=== PATIENT | male | born 1970 | race Caucasian/White ===

== ENCOUNTER 2024-03-24 08:33 | Outpatient (CLI) | payer BC, SELFPAY ==
--- OUTSIDE RECORDS SUMMARY | 2024-03-24 08:40 | XMS_ITS | Encounter Summary ---
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 Name Role Phone No Primary/Referring, Phy Primary Care Provider Unavailable Reason for Visit * Procedure/Equipment (Routine) - Incomplete Specialty Diagnoses / Procedures Referred By Smiley cueto Referred To Contact Diagnoses Tremor Procedures NM DaTscan Brain Spect Grayson Tolentino MD [address] [place] [address] Referral ID Status Reason Start Date Expiration Date V isits Requested Visits Authorized [id number] Incomplete 12/10/2023 03/10/2025 6 6 Encounter Details Date Type Department Care Team (Late st Contact Info) Description 12/31/2023 2:30 PM FLATWARE MAKER Ancillary Procedure [facility] [address] [place] [address] [phone] Grayson Tolentino MD [address] [place] [address] [phone] Social History Tobacco Use Types Packs/Day Years Used Date Smoking Tobacco: Never Smokeless Tobacco: Never Alcohol Use Standard Drinks/Week Comments Not Currently 0 (1 standard drink = 0.6 oz pur e alcohol) Sex and Gender Information Value Date Recorded Sex Assigned at Not on file Gender Identity Not on file Sexual Orientation Not on file documented as of this encounter Plan of Treatment Upcoming Encounters Date Type Department Care Team (Late Contact Info) Description 09/08/2024 8:50 AM CDT Appointment [facility] [place] [phone] Grayson Tolentino MD [address] [place] [address] documented as of this encounter Procedures Procedure Name Priority Date/Time Associated Diagnosis Comments NM DATSCAN BRAIN SPECT Routine 12/31/2023 3:00 PM FLATWARE MAKER Tremor documented in this encounter Results * NM DaTscan Brain Spect (12/31/2023 3:00 PM FLATWARE MAKER) Anatomical Region Laterality Modality [facility] 12/31/2023 3:00 PM FLATWARE MAKER Narrative 12/31/2023 3:19 PM FLATWARE MAKER EXAM: NM DATSCAN BRAIN SPECT LOCATION: [facility] DATE: 12/31/2023 INDICATION: Tremor, Tremor, unspecified. Complex tremor. Life-long tremor with more recent worsening. COMPARISON: MR brain 07/14/2023 reviewed. TECHNIQUE: IOFLUPANE I 123 185 MBQ/2.5ML IV SOLN 4.3 millicurie, IV. 3 hour delay SPECT brain imaging. FINDINGS: Slight asymmetry of the right caudate nucleus and putamen as compared to the left, likely due to some slight oblique patient positioning, as overall radiotracer distribution and morphology of the caudate nuclei and putamina bilaterally are relatively normal on slice by slice basis. IMPRESSION: Suspected normal study. No convincing evidence of parkinsonism. Procedure Note Magan Tolentino MD - 12/31/2023 EXAM: NM DATSCAN BRAIN SPECT LOCATION: [facility] DATE: 12/31/2023 INDICATION: Tremor, Tremor, unspecified. Complex tremor. Life-long tremorwith more recent worsening. COMPARISON: MR brain 07/14/2023 reviewed. TECHNIQUE: IOFLUPANE I 123 185 MBQ/2.5ML IV SOLN 4.3 millicurie, IV. 3hour delay SPECT brain imaging. FINDINGS: Slight asymmetry of the right caudate nucleus and putamen ascompared to the left, likely due to some slight oblique patientpositioning, as overall radiotracer distribution and morphology of thecaudate nuclei and putamina bilaterally are relatively normal on slice byslice basis. IMPRESSION: Suspected normal study. No convincing evidence of parkinsonism. Grayson M Rajan MD RAD NM documented in this encounter Visit Diagnoses Not on filedocumented in this encounter Care Teams Bulk Cooler Installer Relationship Specialty Start Date End Date No Primary/Referring, Phy PCP - General 12/10/23 documented as of this encounter
--- OUTSIDE RECORDS SUMMARY | 2024-03-24 08:40 | XMS_ITS | Clinical Summary ---
Author Name Unknown Organization [facility] Address [place], [place] [address] Care Team Providers Care Head Kiln Operator Name Role Phone Maksim Tomas DO Primary Care Provider Allergies No known active allergies Medications Medication Sig Dispensed Refills Start Date End Date Status omeprazole 20 mg tabletIndications:Gas tric reflux Take 1 Tablet (20 mg) by mouth once daily before a meal. 90 Tablet 3 10/25/2022 Active cyclobenzaprine (FLEXERIL) 5 mg tabletIndications:Leg pain, bilateral Take 1 Tablet (5 mg) by mouth at bedtime if needed for Muscle Spasm (Insomnia). 30 Tablet 2 07/02/2023 Active carbidopa-levodopa, 25-100 mg, (SINEMET 25-100) 25-100 mg tabletIndications:Par kinsonian features Take 1 Tablet by mouth three times daily. Take 1 tablet by mouth an hour before bedtime. May repeat 1 time if needed. 90 Tablet 3 07/30/2023 Active rOPINIRole (REQUIP) 3 mg tabletIndications:Res tless leg syndrome Take 1 Tablet (3 mg) by mouth at bedtime. 90 Tablet 07/30/2023 Active propranoloL (INDERAL) 20 mg tabletIndications:Hal mor Take 1 Tablet (20 mg) by mouth three times daily. Begin with one tablet per day; increase to one pill twice per day in 3 days; increase again to one pill three times per day after 3 days 90 Tablet 2 08/13/2023 Active predniSONE (DELTASONE) 10 mg tabletIndications:Chr onic ethmoidal sinusitis 40mg by mouth daily for 6 days, then 20mg by mouth daily for 6 days, then 10mg by mouth daily for 2 days 38 Tablet 08/22/2023 Active pantoprazole (PROTONIX) 40 mg delayed-release tabletIndications:Lar yngopharyngeal reflux Take 1 Tablet (40 mg) by mouth once daily. 90 Tablet 10 12/17/2023 Active amLODIPine (NORVASC) 10 mg tabletIndications:Ess ential hypertension TAKE 1 TABLET(10 MG) BY MOUTH EVERY DAY 90 Tablet 12/25/2023 Active losartan-hydrochlorot hiazide, 50-12.5 mg, (HYZAAR) 50-12.5 mg tabletIndications:Ess ential hypertension TAKE 1 TABLET BY MOUTH EVERY DAY 90 Tablet 12/25/2023 Active Active Problems Problem Noted Date Diagnosed Date Meralgia paraesthetica, left 01/22/2023 Adjustment disorder with depressed mood 06/20/20 20 Alcohol use disorder, mild, abuse 06/20/2020 Essential hypertension 02/25/2018 Chronic right shoulder pain 12/29/2017 Hyperlipemia, mixed Obesity Resolved Problems Problem Noted Date Diagnosed Date Resolved Date Suicide attempt 10/25/2022 01/22/2023 Encounters Date Type Department Care Team Description 03/01/2024 1:18 PM CDT - 03/01/2024 3:05 PM CDT Emergency [facility] [address] [place] [address] Julian Fernández MD Chest wall pain (Primary Dx) Discharge Disposition: Against Medical Advice or Discontinued Care 03/01/2024 Travel 02/25/2024 12:30 PM CDT Office Visit [facility] [address] [place] [address] Ronald Gongora, Ninfa Hearing Problem 02/25/2024 Travel 02/23/2024 Telephone [facility] [address] [place] [address] Ronald Gongora, Ninfa 02/11/2024 Travel 01/14/2024 Orders Only [facility] [address] [place] [phone] Aravind Guerra MD <No scans attached> 12/25/2023 Refill [facility] [address] [place] [address] Nikki Brito PA Refill Request (Amlodipine, Losartan-hydrochlorot hiazide (50-12.5 Mg)) from Last 3 Months Immunizations Name Administration Dates Next Due Tdap 11/01/2019 Zoster (Shingrix-RZV, recombinant) 07/30/2023, Family History Medical History Relation Name Comments Hypertension Brother Alcoholism Father Good Health Mother Good Health Sister Relation Name Status Comments Brother Alive Father (Age 45) Alcohol ab use Mother Alive Sister Alive Social History Tobacco Use Types Packs/Day Years Used Date Smoking Tobacco: Never Smokeless Tobacco: Former Chew Quit: 07/23/2020 Tobacco Cessation:Counseling Given: Yes Alcohol Use Standard Drinks/Week Comments Not Currently 6 (1 standard drink = 0.6 oz pure alcohol) since JAN 07 - stopped all ETHO PHQ-2 Answer Date Recorded PHQ-2 TOTAL SCORE 0 10/25/2022 Social Connections Answer Date Recorded Frequency of Communication with Friends and Fami ly Not on file 11/24/2021 Financial Resource Strain Answer Date R ecorded Difficulty of Paying Living Expenses Not on file 11/24/2021 Difficulty of Paying Living Expenses Not on file 11/24/2021 Sex and Gender Information Value Date Recorded Sex Assigned at Not on file Gender Identity Not on file Sexual Orientation Not on file Obstetrics History Last Filed Vital Signs Vital Sign Reading Time Taken Comments Blood Pressure 132/79 03/01/2024 1:55 PM CDT Pulse 70 03/01/2024 1:55 PM CDT Temperature 36.5 ??C (97.7 ??F) 03/01/2024 3:07 PM CD T Respiratory Rate 18 03/01/2024 1:25 PM CDT Oxygen Saturation 97% 03/01/2024 1:55 PM CDT Inhaled Oxygen Concentration - - Weight 115.7 kg (255 lb) 03/01/2024 1:26 PM CDT Height 180.3 cm (5' 11) 03/01/2024 1:26 PM CDT Body Mass Index 35.57 03/01/2024 1:26 PM CDT Plan of Treatment Health Maintenance Due Date Last Done Comments Pneumococcal series for age 6-64 (1 of 2 - PCV) 1975 HIV for age 15-65 1984 COVID-19 vaccine series (2022- season) 2023 BMI (ht and wt on same day) for age 18+ 10/25/2023 10/25/2022, 02/14/2021, 01/03/2021, Additional history exists Depression screening for age 12+ 10/25/2023 10/25/2022, 06/29/2020, 06/22/2020, Additional history exists Influenza for age 50-64 07/25/2024 Fecal testing sDNA-FIT (Cologuard) for age 45-75 08/12/2026 08/12/2023 Lipids for age 45-75 10/25/2027 10/25/2022, 11/01/20 Tetanus booster 11/01/2029 11/01/2019 Fecal testing non-DNA (FIT,FOBT,iFOBT) for age 45-75 Discontinued 11/01/2019, 08/14/2019 Tdap Completed 11/01/2019 Hepatitis C screening for ag e 18-79 Completed 11/09/2020 Zoster (shingles) series for age 50+ Completed 07/30/2023, 10/25/2022 Medical Devices Implanted Type Area Charge Aide Device Identifier Shelf Expiration Date Model / Serial / Lot Wire Kirs .[id number] - [id number] Implanted:Qty: 2 on 08/07/2010 at [facility] Left: Hand DEPUY 1644-10-000 # / / 2 253 03 AUG 2010 Explanted Type Area Charge Aide Device Identifier Shelf Expiration Date Model / Serial / Lot Wire Kirs .[id number] [id number] - [id number] Explanted:Qty: 1 on 08/07/2010 at [facility] Left: Hand [employer] [id number] 00# / / 2 253 03 AUG 2010 Procedures Procedure Name Priority Date/Time Associated Diagnosis Comments XR CHEST 1 VIEW PORTABLE STAT 03/01/2024 1:58 PM CDT LIPASE SETH 03/01/2024 1:51 PM CDT HEPATIC FUNCTION PANEL SETH 03/01/2024 1:51 PM CDT CBC WITH AUTO DIFFERENTIAL STAT 03/01/2024 1:51 PM CDT MAGNESIUM STAT 03/01/2024 1:51 PM CDT TROPONIN T (HS) ACUTE W/2HR REFLEX STAT 03/01/2024 1:51 PM CDT PROTIME-INR STAT 03/01/2024 1:51 PM CDT BASIC METABOLIC PANEL STAT 03/01/2024 1:51 PM CDT CBC WITH AUTO DIFFERENTIAL STAT 03/01/2024 1:51 PM CDT EKG 12 LEAD STAT 03/01/2024 1:24 PM CDT SCAN-DIAGNOSTIC REPORT 02/27/2024 12:00 AM CDT SDNA-FIT EXTERNAL (COLOGUARD) Routine 08/12/2023 2:18 PM CDT Screening for colon cancer LIPID PANEL W REFLEX MEASURED LDL Routine 10/25/2022 9:02 AM SEO ASSOCIATE Encounter for screening for lipoid disorders ANTI HCV Routine 11/09/2020 9:46 AM SEO ASSOCIATE Abnormal LFTs OCCULT BLOOD IFOBT STOOL Routine 11/01/2019 8:43 AM SEO ASSOCIATE Screening for colon cancer from Last 3 Months or Most Recently Relevant to Health Maintenance Results * XR CHEST 1 VIEW PORTABLE (03/01/2024 1:58 PM CDT) Anatomical Region Laterality Modality HEART, THORAX, CHEST Digital Rad iography 03/01/2024 2:13 PM CDT Impressions 03/01/2024 2:13 PM CDT Unremarkable chest. Dictated by: Velasquez Colvin MD @ 03/01/2024 14:13:10 (Electronically Signed) Narrative 03/01/2024 2:13 PM CDT For Patients: ??As a result of the Cures Act, medical imaging exams and procedure reports are released immediately into your electronic medical record. ??You may view this report before your referring provider. ??If you have questions, please contact your health care provider. INDICATION: Chest pain. TECHNIQUE: Chest 1 view. COMPARISON: None FINDINGS: Cardiovascular and mediastinum: Heart size and vasculature are normal in caliber and appearance. ??Mediastinum is within normal limits. ?? Lungs and pleural space: Lungs are clear. ??No sign of infiltrate or mass. ??No sign of pleural effusion. ??No pneumothorax. ?? Bones and soft tissues: No significant findings. ?? Procedure Note Velasquez Colvin MD - 03/01/2024 For Patients: As a result of the Cures Act, medical imagingexams and procedure reports are released immediately into your electronicmedical record. You may view this report before your referring provider.If you have questions, please contact your health care provider. INDICATION: Chest pain. TECHNIQUE: Chest 1 view. COMPARISON: None FINDINGS: Cardiovascular and mediastinum: Heart size and vasculature are normal incaliber and appearance. Mediastinum is within normal limits. Lungs and pleural space: Lungs are clear. No sign of infiltrate or mass.No sign of pleural effusion. No pneumothorax. Bones and soft tissues: No significant findings. IMPRESSION: Unremarkable chest. Dictated by: Velasquez Colvin MD @ 03/01/2024 14:13:10 (Electronically Signed) Derrick VILLAFANA GENERAL PILY GING * TROPONIN T (HS) ACUTE W/2HR REFLEX (03/01/2024 1:51 PM CDT) TROPONIN T HS 12 6-15 ng/L ng/L 03/01/2024 2:17 PM CDT [facility] Blood BLOOD SPECIMEN / Unknown Venipuncture / Unknown 03/01/2024 1:51 PM CDT 03/01/2024 1:55 PM CDT Narrative [facility] - 03/01/2024 2:17 PM CDT hs-cTnT (Elecsys Troponin T Gen 5) concentration (s) above the sex-specific 99th percentile (16 ng/L or greater for males or 11 ng/L or greater for females) are indicative of myocardial injury. If initial hs-cTnT <=100 ng/L at presentation, a 0h/2h ABSOLUTE (ng/L) delta change (rising or falling) of >=10 ng/L suggests a significant change, whereas a 0h/2h delta change <=3 ng/L suggests no significant change. If initial hs-cTnT >100 ng/L at presentation, a 0h/2h/ RELATIVE (percent, %) delta change of 20% is suggested to distinguish patients with acute vs. chronic myocardial injury. There are multiple etiologies that can cause hs-cTnT increases above the 99th percentile (myocardial injury) other than acute myocardial infarction. Clinical context and careful clinical evaluation are critical for diagnosis and risk-stratification. The diagnosis of acute myocardial infarction requires a rising and/or falling pattern in hs-cTnT concentrations with at least one value above the sex-specific 99th percentile PLUS at least one of the following clinical criteria: ischemic symptoms, new or presumed new significant ST-T wave changes or new LBBB, development of pathological Q waves, imaging evidence of new loss of viable myocardium or new regional wall motion abnormality, or identification of intracoronary atherothrombosis or an acute angiographic culprit on coronary angiography. In appropriate low-risk patients with a non-ischemic electrocardiogram without active chest pain with a symptom onset >3-hours without recurrence, a single initial hs-cTnT<6 ng/L identifies patient with a very low risk in emergency department patient population. Derrick VILLAFANA CHEMISTRY Performing Organization Address City/State/[facility] Co de Phone Number [facility] [address] [place] [phone] * (ABNORMAL) CBC WITH AUTO DIFFERENTIAL (03/01/2024 1:51 PM CDT) [facility] WHITE BLOOD COUNT 7.0 4.5 - 11.0 thou/cu mm 03/01/2024 1:58 PM CDT [facility] RED BLOOD COUNT 4.40 4.30 - 5.90 mil/cu mm 03/01/2024 1:58 PM CDT [facility] HEMOGLOBIN 13.2(L) 13.5 - 17.5 g/dL 03/01/2024 1:[address] [facility] HEMATOCRIT 41.2 37.0 - 53.0 % 03/01/2024 1:[address] [facility] MCV 94 80 - 100 fL 03/01/2024 1:[address] [facility] MCH 30.0 26.0 - 34.0 pg 03/01/2024 1:[address] [facility] MCHC 32.0 32.0 - 36.0 g/dL 03/01/2024 1:[address] [facility] RDW 15.0 11.5 - 15.5 % 03/01/2024 1:[address] [facility] PLATELET COUNT 322 140 - 440 thou/cu mm 03/01/2024 1:[address] [facility] MPV 8.8 6.5 - 11.0 fL 03/01/2024 1:[address] [facility] % NEUT 58.1 % 03/01/2024 1:[address] [facility] % LYMPH 27.1 % 03/01/2024 1:[address] [facility] % MONO 12.0 % 03/01/2024 1:[address] [facility] % EOS 2.1 % 03/01/2024 1:[address] [facility] % BASO 0.7 % 03/01/2024 1:[address] [facility] ABSOLUTE NEUTROPHILS 4.1 1.7 - 7.0 thou/cu mm 03/01/2024 1:[address] [facility] ABSOLUTE LYMPHOCYTES 1.9 0.9 - 2.9 thou/cu mm 03/01/2024 1:[address] [facility] ABSOLUTE MONOCYTES 0.8 <0.9 thou/cu mm 03/01/2024 1:[address] [facility] ABSOLUTE EOSINOPHILS 0.2 <0.5 thou/cu mm 03/01/2024 1:[address] [facility] ABSOLUTE BASOPHILS 0.1 <0.3 thou/cu mm 03/01/2024 1:58 PM CDT [facility] Blood BLOOD SPECIMEN / Unknown Venipuncture / Unknown 03/01/2024 1:51 PM CDT 03/01/2024 1:55 PM CDT Derrick VILLAFANA HEMATOLOGY Performing Organization Address City/[facility]/ZIP Co de Phone Number [facility] [address] [place] [address] * PROTIME-INR (03/01/2024 1:51 PM CDT) INR 0.9 <1.3 03/01/2024 2:06 PM CDT [facility] PROTIME 10.6 10.3 - 12.3 sec 03/01/2024 2:06 PM CDT [facility] Blood BLOOD SPECIMEN / Unknown Venipuncture / Unknown 03/01/2024 1:51 PM CDT 03/01/2024 1:55 PM CDT Narrative [facility] - 03/01/2024 2:06 PM CDT ?Therapeutic Range 2.0-3.0 for most anticoagulated patients 2.5-3.5 or 4.0 for high risk patients The INR is only used for patients on stable oral anticoagulant therapy. It makes no significant contribution to the diagnosis or treatment of patients whose Protime is prolonged for other reasons. INR results are increased when heparin levels exceed 1.0 U/mL, which corresponds to an aPTT >125 seconds if the patient is on UFH. Derrick VILLAFANA HEMATOLOGY [facility] [address] [place] [address] * MAGNESIUM (03/01/2024 1:51 PM CDT) MAGNESIUM 1.9 1.6 - 2.6 mg/dL 03/01/2024 2:19 PM CDT [facility] Blood BLOOD SPECIMEN / Unknown Venipuncture / Unknown 03/01/2024 1:51 PM CDT 03/01/2024 1:55 PM CDT Derrick VILLAFANA CHEMISTRY [facility] [address] [place] [address] * LIPASE (03/01/2024 1:51 PM CDT) LIPASE 29.8 13.0 - 60.0 IU/L 03/01/2024 2:52 PM CDT [facility] Blood BLOOD SPECIMEN / Unknown Venipuncture / Unknown 03/01/2024 1:51 PM CDT 03/01/2024 1:55 PM CDT Julian Fernández MD CHEMISTRY Performing Organization Address City/[facility]/ZIP Co de Phone Number [facility] [address] [place] [address] * (ABNORMAL) HEPATIC FUNCTION PANEL (03/01/2024 1:51 PM CDT) Pathologist [facility] ALBUMIN 4.2 4.0 - 4.9 g/dL 03/01/2024 2:55 PM CDT [facility] PROTEIN,TOTAL 6.9 6.0 - 8.0 g/dL 03/01/2024 2:55 PM T [facility] BILIRUBIN,TOTAL 1.3(H) 0.0 - 1.2 mg/dL 03/01/2024 2:55 PM T [facility] BILIRUBIN,DIRECT 0.3 0.0 - 0.3 mg/dL 03/01/2024 2:55 PM T [facility] BILIRUBIN,INDIRE CT 1.0(H) 0.2 - 0.8 mg/dL 03/01/2024 2:55 PM T [facility] ALK PHOSPHATASE 80 40 - 129 IU/L 03/01/2024 2:55 PM T [facility] ALT (SGPT) 36 10 - 50 IU/L 03/01/2024 2:55 PM T [facility] AST (SGOT) 44 10 - 50 IU/L 03/01/2024 2:[address] [facility] Blood BLOOD SPECIMEN / Unknown Venipuncture / Unknown 03/01/2024 1:51 PM CDT 03/01/2024 1:55 PM CDT Julian Fernández MD CHEMISTRY [facility] [address] [place] [address] * (ABNORMAL) BASIC METABOLIC PANEL (03/01/2024 1:51 PM CDT) SODIUM 138 136 - 145 mmol/L 03/01/2024 2:[address] [facility] POTASSIUM 3.8 3.5 - 5.1 mmol/L 03/01/2024 2:[address] [facility] CHLORIDE 98 98 - 107 mmol/L 03/01/2024 2:[address] [facility] CO2,TOTAL 28 22 - 29 mmol/L 03/01/2024 2:[address] [facility] ANION GAP 12 5 - 18 03/01/2024 2:[address] [facility] GLUCOSE 98 70 - 99 mg/dL 03/01/2024 2:[address] [facility] CALCIUM 9.2 8.6 - 10.0 mg/dL 03/01/2024 2:[address] [facility] BUN 10 6 - 20 mg/dL 03/01/2024 2:[address] [facility] CREATININE 1.00 0.70 - 1.20 mg/dL 03/01/2024 2:[address] [facility] BUN/CREAT RATIO 10 10 - 20 2:[address] [facility] eGFR 89(L) >90 mL/min/1.7 3m2 03/01/2024 2:17 PM CDT [facility] Comment:As of 2022, eG FR is calculated by the CKD-EPI creatinine equation without race adjustment. ??eGFR can be influenced by muscle mass, exercise, and diet. ??The reported eGFR is an estimation only and is only applicable if the renal function is stable. Blood BLOOD SPECIMEN / Unknown Venipuncture / Unknown 03/01/2024 1:51 PM CDT 03/01/2024 1:55 PM CDT Derrick VILLAFANA CHEMISTRY [facility] [address] [place] [address] * EKG 12 LEAD (03/01/2024 1:24 PM CDT) Pathologist [facility] Interpretation Normal sinus rhythm Normal ECG When compared with ECG of 08-NOV-2023 19:31, Vent. rate has decreased BY ??38 BPM [facility] Ventricular Rate 73 BPM [facility] Atrial Rate 73 BPM [facility] NOW P-R Interval 158 ms [facility] NOW QRS Duration 92 ms [facility] QT 404 ms [facility] QTc 445 ms [facility] NOW P [place] 35 degrees [facility] NOW R [place] 19 degrees [facility] NOW T [place] 41 degrees BEYOND NOW 03/01/2024 1:24 PM CDT 03/01/2024 7:26 PM CDT Derrick VILLAFANA EKG ORD Performing Organization Address [facility] Co de Phone Number [facility] [place], [place] * SCAN-DIAGNOSTIC REPORT (02/27/2024 12:00 AM CDT) Scanner OTHER * SDNA-FIT EXTERNAL (COLOGUARD) (08/12/2023 2:18 PM CDT) Pathologist [facility] NONINV COLON CA DNA+OCC BLD SCRN STL-IMP Negative Negative 08/19/2023 10:07 AM CDT [employer] (CLIA #:[id number]) Comment: NEGATIVE TEST RESULT. A negative Cologuard result indicates a low likelihood that a colorectal cancer (CRC) or advanced adenoma (adenomatous polyps with more advanced pre-malignant features) ??is present. The chance that a person with a negative Cologuard test has a colorectal cancer is less than 1 in 1500 (negative predictive value >99.9%) or has an ??advanced adenoma is less than ??5.3% (negative predictive value 94.7%). These data are based on a prospective cross-sectional study of 10,000 individuals at average risk for colorectal cancer who were screened with both Cologuard and colonoscopy. (Latisha Bahena al, N Engl J Med 2014;370(14):1286- 1297) The normal value (reference range) for this assay is negative. COLOGUARD RE-SCREENING RECOMMENDATION: Periodic colorectal cancer screening is an important part of preventive healthcare for asymptomatic individuals at average risk for colorectal cancer. ??Following a negative Cologuard result, the [place] [employer] and U.S. Multi-Society Task Force screening guidelines recommend a Cologuard re-screening interval of 3 years. References: [place] [employer] Guideline for Colorectal Cancer Screening: https://www.cancer.org/cancer/gkjzt-aptnna-gvacvk/pxqwefgip-zodmrsqfz-tuuzvxe/ac s-rec ommendations.html.; Marino DK, Bravo CR, Vanessa GamboaK, Colorectal Cancer Screening: Recommendations for Physicians and Patients from the U.S. Multi-Society Task Force on Colorectal Cancer Screening , Am J Gastroenterology 2017; 112:9690-9563. TEST DESCRIPTION: Composite algorithmic analysis of stool DNA-biomarkers with hemoglobin immunoassay. ?? Quantitative values of individual biomarkers are not reportable and are not associated with individual biomarker result reference ranges. Cologuard is intended for colorectal cancer screening of adults of either sex, 45 years or older, who are at average-risk for colorectal cancer (CRC). Cologuard has been approved for use by the U.S. FDA. The performance of Cologuard was established in a cross sectional study of average-risk adults aged 50-84. Cologuard performance in patients ages 45 to 49 years was estimated by sub-group analysis of near-age groups. Colonoscopies performed for a positive result may find as the most clinically significant lesion: colorectal cancer [4.0%], advanced adenoma (including sessile serrated polyps greater than or equal to 1cm diameter) [20%] or non- advanced adenoma [31%]; or no colorectal neoplasia [45%]. These estimates are derived from a prospective cross-sectional screening study of 10,000 individuals at average risk for colorectal cancer who were screened with both Cologuard and colonoscopy. (Latisha Bahena al, N Engl J Med 2014;370(14):2752-3991.) Cologuard may produce a false negative or false positive result (no colorectal cancer or precancerous polyp present at colonoscopy follow up). A negative Cologuard test result does not guarantee the absence of CRC or advanced adenoma (pre-cancer). The current Cologuard screening interval is every 3 years. ([place] [employer] and U.S. Multi-Society Task Force). Cologuard performance data in a 10,000 patient pivotal study using colonoscopy as the reference method can be accessed at the following location: www.[employer]/results. Additional description of the Cologuard test process, warnings and precautions can be found at www.[employer]. Stool specimen (specimen) (Rectum) 08/12/2023 2:18 PM CDT 08/14/2023 9:40 PM CDT Jorge Alberto Vera MD URINE [employer] (CLIA #:[id number]) [place] [address], * LIPID PANEL W REFLEX MEASURED LDL ([id number]) (10/25/2022 9:02 AM SEO ASSOCIATE) CHOLESTEROL,TOTAL 191 100 - 199 mg/dL 10/27/2022 2:56 AM SEO ASSOCIATE [facility] TRIGLYCERIDES 130 <150 mg/dL 10/27/2022 2:56 AM SEO ASSOCIATE [facility] HDL CHOLESTEROL 60 >40 mg/dL 2:56 AM SEO ASSOCIATE [facility] NON-HDL CHOLESTEROL 131 <145 mg/dl 10/27/2022 2:56 AM SEO ASSOCIATE [facility] CHOL/HDL RATIO 3.18 <4.50 10/27/2022 2:56 AM SEO ASSOCIATE [facility] LDL CHOLESTEROL 105 <=130 mg/dL 10/27/2022 2:56 AM SEO ASSOCIATE [facility] VLDL CHOLESTEROL 26 <=30 mg/dL 10/27/2022 2:56 AM SEO ASSOCIATE [facility] PROVIDER ORDERED STATUS RANDOM 10/27/2022 2:56 AM SEO ASSOCIATE [facility] Blood BLOOD SPECIMEN / Unknown Venipuncture / Unknown 10/25/2022 9:02 AM SEO ASSOCIATE 10/25/2022 9:08 AM SEO ASSOCIATE Nikki VILLAFANA CHEMISTRY Performing Organization Address City/[facility]/ZIP Co de Phone Number [facility] [address] [place] [address], [place] * ANTI HCV (11/09/2020 9:46 AM SEO ASSOCIATE) HEPATITIS C ANTIBODY Non-React william Non-React william 11/09/2020 6:36 PM SEO ASSOCIATE [facility] Comment:Antibodies to HCV no t detected; does not exclude the possibility of exposure to HCV. Blood BLOOD SPECIMEN / Unknown Venipuncture / Unknown 11/09/2020 9:46 AM SEO ASSOCIATE 11/09/2020 9:56 AM SEO ASSOCIATE Tod Delgadillo MD SEND OUTS Performing Organization Address City/[facility]/ZIP Co de Phone Number [facility] [address] [place] [address], [place] * OCCULT BLOOD IFOBT STOOL (11/01/2019 8:43 AM SEO ASSOCIATE) STOOL BLOOD ,IFOBT Negative Negative 11/01/2019 9:06 AM SEO ASSOCIATE [facility] [[email or web address]] Stool STOOL SPECIMEN / Unknown Non-Blood / Unknown 11/01/2019 8:43 AM SEO ASSOCIATE 11/01/2019 8:48 AM SEO ASSOCIATE Alex Masterson DO LABORATORY [facility] [[email or web address]] [address] [place] [address], from Last 3 Months or Most Recently Relevant to Health Maintenance Advance Directives * Full Code (Latest Code Status on File) Date Activated Date Inactivated Comments 06/19/2020 10:47 PM 06/20/2020 8:17 PM * Full Code Date Activated Date Inactivated Comments 08/07/2010 12:59 PM 08/07/2010 6:38 PM * Full Code Date Activated Date Inactivated Comments 08/07/2010 12:57 PM 08/07/2010 12:59 PM Care Teams Head Kiln Operator Relationship Specialty Start Date End Date Maksim Tomas DO [address] [place] [address] PCP - General Family Practice 09/10/22
--- OUTSIDE RECORDS SUMMARY | 2024-03-24 08:40 | XMS_ITS | Encounter Summary ---
Author Name Unknown Organization [facility] Address [address] [place] [address] Care Team Providers Care Principal Associate Name Role Phone No Primary/Referring, Phy Primary Care Provider Unavailable Reason for Visit * Reason Comments REFERRAL REQUEST Encounter Details Date Type Department Care Team (Late st Contact Info) Description 03/17/2024 Telephone [facility] [address] [place], [place] [phone] Andie Louis, WASTE ELIMINATION REQUEST Social History Tobacco Use Types Packs/Day Years Used Date Smoking Tobacco: Never Smokeless Tobacco: Never Alcohol Use Standard Drinks/Week Comments Not Currently 0 (1 standard drink = 0.6 oz pur e alcohol) Sex and Gender Information Value Date Recorded Sex Assigned at Not on file Gender Identity Not on file Sexual Orientation Not on file documented as of this encounter Nursing Notes * Andie Louis RN - 03/17/2024 3:49 PM CDT Referrals faxed. * Andie Louis RN - 03/17/2024 3:31 PM CDT ----- Message from Grayson Tolentino MD sent at 03/17/2024 3:23 PM CDT ----- Please assist with referrals: -To [facility] neurology for second opinion (letter summary also written) -To [facility] rehab / PT Grayson Mccoy documented in this encounter Plan of Treatment Upcoming Encounters Date Type Department Care Team (Late st Contact Info) Description 09/08/2024 8:50 AM CDT Appointment [facility] [place] [address] Grayson Tolentino MD [address] [place] [address] documented as of this encounter Visit Diagnoses Not on filedocumented in this encounter Care Teams Principal Associate Relationship Specialty Start Date End Date No Primary/Referring, Phy PCP - General 12/10/23 documented as of this encounter
--- OUTSIDE RECORDS SUMMARY | 2024-03-24 08:40 | XMS_ITS | Encounter Summary ---
Author Name Unknown Organization [facility] Address [address] [place] [address] Care Team Providers Care Auxiliary Equipment Tender Name Role Phone No Primary/Referring, Phy Primary Care Provider Unavailable Reason for Visit * Procedure/Equipment (Routine) - Incomplete Specialty Diagnoses / Procedures Referred By Smiley cueto Referred To Contact Diagnoses Tremor Procedures NM DaTscan Brain Spect Grayson Tolentino MD [address] [place] [address] Referral ID Status Reason Start Date Expiration Date V isits Requested Visits Authorized [id number] Incomplete 12/10/2023 03/10/2025 6 6 Encounter Details Date Type Department Care Team (Late st Contact Info) Description 12/31/2023 11:30 AM SWITCHGEAR REPAIRER Ancillary Procedure [facility] [address] [place] [phone] Grayson Tolentino MD [address] [place] [address] [phone] Social History Tobacco Use Types Packs/Day Years [...] Info) Description 09/08/2024 8:50 AM CDT Appointment [facility] [place], [place] [phone] Grayson Tolentino MD [address] [place] [address] documented as of this encounter Procedures Procedure Name Priority Date/Time Associated Diagnosis Comments NM DATSCAN BRAIN SPECT Routine 12/31/2023 3:00 PM SWITCHGEAR REPAIRER Tremor documented in this encounter Results * NM DaTscan Brain Spect (12/31/2023 3:00 PM SWITCHGEAR REPAIRER) Anatomical Region Laterality Modality Head Nuclear Medicine 12/31/2023 3:00 PM SWITCHGEAR REPAIRER Narrative 12/31/2023 3:19 PM SWITCHGEAR REPAIRER EXAM: NM DATSCAN BRAIN SPECT LOCATION: [facility] [...] on filedocumented in this encounter Care Teams Auxiliary Equipment Tender Relationship Specialty Start Date End Date No Primary/Referring, Phy PCP - General 12/10/23 documented as of this encounter
--- OUTSIDE RECORDS SUMMARY | 2024-03-24 08:40 | XMS_ITS | Encounter Summary ---
Author Name Unknown Organization [facility] Address [address] [place] [address] Care Team Providers Care Cpo Name Role Phone No Primary/Referring, Phy Primary Care Provider Unavailable Reason for Visit * Procedure/Equipment (Routine) - Incomplete Specialty Diagnoses / Procedures Referred By Smiley cueto Referred To Contact Diagnoses Tremor Procedures NM DaTscan Brain Spect Grayson Tolentino MD [address] [place] [address] Referral ID Status Reason Start Date Expiration Date V isits Requested Visits Authorized [id number] Incomplete 12/10/2023 03/10/2025 6 6 Encounter Details Date Type Department Care Team (Late st Contact Info) Description 12/31/2023 10:30 AM INFECTIOUS DISEASE PHYSICIAN Ancillary Procedure [facility] [address] [place] [phone] Grayson Tolentino MD [address] [place] [address] Tremor Social History Tobacco Use Types Packs/Day Years Used Date Smoking Tobacco: Never Smokeless Tobacco: Never Alcohol Use Standard Drinks/Week Comments Not Currently 0 (1 standard drink = 0.6 oz pur e alcohol) Sex and Gender Information Value Date Recorded Sex Assigned at Not on file Gender Identity Not on file Sexual Orientation Not on file documented as of this encounter Progress Notes * Grayson Tolentino MD - 12/31/2023 10:30 AM CST Called with results. Will set up follow-up in clinic to discuss in more detail. Grayson Tolentino MD CTIOUS DISEASE PHYSICIAN documented in this encounter Plan of Treatment Upcoming Encounters Date Type Department Care Team (Late st Contact Info) Description 09/08/2024 8:50 AM CDT Appointment [facility] [address] [place] [address] Grayson Tolentino MD [address] [place] [address] documented as of this encounter Procedures Procedure Name Priority Date/Time Associated Diagnosis Comments NM DATSCAN BRAIN SPECT Routine 12/31/2023 3:00 PM INFECTIOUS DISEASE PHYSICIAN Tremor documented in this encounter Results * NM DaTscan Brain Spect (12/31/2023 3:00 PM INFECTIOUS DISEASE PHYSICIAN) Anatomical Region Laterality Modality Head Nuclear Medicine 12/31/2023 3:00 PM INFECTIOUS DISEASE PHYSICIAN Narrative 12/31/2023 3:19 PM INFECTIOUS DISEASE PHYSICIAN EXAM: NM DATSCAN BRAIN SPECT LOCATION: [facility] DATE: 12/31/2023 INDICATION: Tremor, Tremor, unspecified. [...] 12/31/2023 EXAM: NM DATSCAN BRAIN SPECT LOCATION: [facility] DATE: 12/31/2023 INDICATION: Tremor, Tremor, unspecified. [...] study. No convincing evidence of parkinsonism. Grayson Tolentino MD RAD NM documented in this encounter Visit Diagnoses Diagnosis Tremor Abnormal involuntary movements documented in this encounter Administered Medications Inactive Administered Medications - up to 3 most recent administrations Medication Order MAR Action Action Date Dose Rate Site iodine strong (LUGOLS) 5 % solution 0.8 mL 0.8 mL, Oral, ONCE, On Fri12/31/23 at 0700, For 1 dose, 0.8 mL of 5% iodine strong solution is equivalent to 100 mg total Iodine/iodide (40 mg iodine + 60 mg iodide) Given 12/31/2023 10:31 AM INFECTIOUS DISEASE PHYSICIAN 0.8 mL ioflupane I 123 injection 5 millicurie 5 millicurie, Intravenous, ONCE (NON-SCHEDULED), Starting on Fri12/31/23 at 1032, Until Fri12/31/23 at 1133, For 1 dose Given 12/31/2023 11:33 AM INFECTIOUS DISEASE PHYSICIAN 4.3 millicuries documented in this encounter Care Teams Cpo Relationship Specialty Start Date End Date No Primary/Referring, Phy PCP - General 12/10/23 documented as of this encounter
--- OUTSIDE RECORDS SUMMARY | 2024-03-24 08:40 | XMS_ITS | Encounter Summary ---
Author Name Unknown Organization [facility] Address [address] [place] [address] Care Team Providers Care Dovetail Machine Operator Name Role Phone No Primary/Referring, Phy Primary Care Provider Unavailable Reason for Referral * Therapies (Routine) - New Request Specialty Diagnoses / Procedures Referred By Smiley cueto Referred To Contact Diagnoses Functional tremor Grayson Tolentino MD [address] [place] [address] Referral ID Status Reason Start Date Expiration Date V isits Requested Visits Authorized [id number] New Request 03/17/2024 03/17/2025 1 1 Scheduling Instructions This order is your clinician's recommendation for a service and is not an insurance referral which authorizes payment. The recommended service and/or location may not be covered by your insurance plan. Please call the number on your insurance card to find out your specific benefits and coverage for the recommended services and/or location. If you need help scheduling the recommended services, please ask your clinician's staff to assist you. Question Answer Appointment Urgency? Non-Urgent Requested Services Evaluate and treat May use saline for irrigation or cleansing Yes dexamethasone use Yes May check glucose per protocol (see policy link below) or if patient has symptoms? Yes Comments Functional tremor. Please refer to Rosette Peres or Isabel Davis * Consult/Transfer Care (Routine) - New Request Specialty Diagnoses / Procedures Referred By Smiley cueto Referred To Contact Diagnoses Tremor Grayson Tolentino MD [address] [place] [address] Referral ID Status Reason Start Date Expiration Date V isits Requested Visits Authorized [id number] New Request 03/17/2024 09/13/2024 1 1 Scheduling Instructions This order is your clinician's recommendation for a service and is not an insurance referral which authorizes payment. The recommended service and/or location may not be covered by your insurance plan. Please call the number on your insurance card to find out your specific benefits and coverage for the recommended services and/or location. If you need help scheduling the recommended services, please ask your clinician's staff to assist you. Question Answer Appointment Urgency? Non-Urgent Reason for visit? functional tremor vs Parkinson Disease Comments Reason for Visit * Reason Comments Follow-up After SWAPNIL scan. Encounter Details Date Type Department Care Team (Late st Contact Info) Description 03/17/2024 12:50 PM CDT Office Visit [facility] [address] [place] [phone] Grayson Tolentino MD [address] [place], [place] [phone] Tremor (Primary Dx); Functional tremor Social History Tobacco Use Types Packs/Day Years Used Date Smoking Tobacco: Never Smokeless Tobacco: Never Alcohol Use Standard Drinks/Week Comments Not Currently 0 (1 standard drink = 0.6 oz pur e alcohol) Sex and Gender Information Value Date Recorded Sex Assigned at Not on file Gender Identity Not on file Sexual Orientation Not on file documented as of this encounter Last Filed Vital Signs Vital Sign Reading Time Taken Comments Blood Pressure 123/79 03/17/2024 12:58 PM CDT Pulse 78 03/17/2024 12:58 PM CDT Temperature - - Respiratory Rate - - Oxygen Saturation - - Inhaled Oxygen Concentration - - Weight 122.5 kg (270 lb 1.6 oz) 024 12:58 PM CDT shoes on Height - - Body Mass Index 37.67 12/10/2023 1:35 PM VAMP CREASER documented in this encounter Patient Instructions * Patient Instructions* Grayson Tolentino MD - 03/17/2024 12:50 PM CDT [email or web address] Please contact us using MyChart or by calling the [facility] nurse line at [phone]. Two easy ways to stay connected with what is going on at [facility]: If you have not already done so, we encourage you to sign up (for free) to be on our e-mailing list, so that you will receive information about upcoming classes, events, and activities hosted by [facility]! To sign up, simply send an email to [email or web address] indicating that you would like to be included. 2. Follow us on Facebook to learn more about current news and upcoming events. Find us at [facility] [employer]! Learn more about our ongoing [facility] studies here! [email or web address] documented in this encounter Progress Notes * Grayson Tolentino MD - 03/17/2024 12:50 PM CDT [facility] Follow-up Note History of Present Illness: Rafat Montes is a 53 y.o. male with a history of hypertension, RLS, sleepapnea, meralgia paresthetica who presents in follow-up for tremor. Was initially seen 11/2023 with some degree of lifelong tremor that worsened significantly about seven months prior. He also noted tinnitus, increasing imbalance, vertigo, burning/itching in the feet, head, hand, genital region. Also RLS symptoms. He had a prior suicide attempt to but no depression currently. Had been seen previously by Dr. Sanchez who noted lifelong tremor that worsened in prescribed Inderal without benefit. Myelomalacia on MRI which was noted to be chronic and EMG was normal of the upper extremities. On my i nitial exam there was some distractibility to a severe right rest tremor. Was felt to possibly be amild lifelong essential tremor with some more recent development of functional tremor although could not fully rule out some degree of Parkinson disease. I obtained a DaTSCAN which was largely normal--some asymmetry felt to be related to patient positioning. This is his first follow-up after obtaining a DaTSCAN. He reports that his tremor is the same if not worse. Exam: Orthostatic vitals (seated then standing) Vitals: 03/17/24 1258 BP: 123/79 Pulse: 78 Weight: 122.5 kg (270 lb 1.6 oz) (Right/Left) Mental Status: Awake, alert. Cranial Nerves: Ocular versions full. No dysarthria. Motor: Moderate to severe right hand rest tremor. It does continue with posture. It does fluctuate in severity and decreases with contralateral left hand movements. Coordination: Finger to nose without dysmetria. Gait: No tremor present walking but decreased arm swing on the right and decreased stride length onthe right. 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 His exam currently is most consistent with this diagnosis. We discussed it today. Also gave him materials to read about it. We will place referral to work with rehab. He was also interested in a second opinion. We will place a referral for this. TT greater than 40 min Note dictated using voice recognition software. Grayson Tolentino MD documented in this encounter Plan of Treatment Upcoming Encounters Date Type Department Care Team (Late st Contact Info) Description 09/08/2024 8:50 AM CDT Appointment [facility] [address] [place] [phone] Grayson Tolentino MD [address] [place] [phone] Scheduled Referrals Name Type Priority Associated Diagnoses Orde r Schedule Neurology Consult-Adults Referral Routine Tremor Ordered: 03/17/2024 Physical Therapy Referral Routine Functional tremor Ordered: 03/17/2024 documented as of this encounter Visit Diagnoses Diagnosis Tremor- Primary Abnormal involuntary movements Functional tremor Musculoskeletal malfunction arising from mental factors documented in this encounter Care Teams Dovetail Machine Operator Relationship Specialty Start Date End Date No Primary/Referring, Veronica PCP - General 12/10/23 documented as of this encounter
--- OUTSIDE RECORDS SUMMARY | 2024-03-24 08:40 | XMS_ITS | Clinical Summary ---
Author Name Unknown Organization [facility] Address [address] [place] [address] Care Team Providers Care Power Line Installer Name Role Phone No Primary/Referring, Phy Primary Care Provider Unavailable Source Comments You are receiving this document as you are listed as the primary care provider,follow-up provider, or the patient has been referred to you for consultation.This is in compliance with the Medicare and[facility] EHR Incentive Program,which states Providers who transition their patient to another setting of careor provider of care or refers their patient to another provider of care shouldprovide summary care record for each transition of care or referral. [facility] Allergies No known active allergies Medications Medication Sig Dispensed Refills Start Date End Date Status carbidopa-levodopa (SINEMET) 25-100 MG tablet Take 1 Tablet by mouth three times a day. Before meals. 07/30/2023 Active amLODIPine (NORVASC) 10 MG tablet Take 1 Tablet (10 mg) by mouth daily. 09/12/2023 Active losartan-hydrochloroth iazide (HYZAAR) 50-12.5 MG tablet Take 1 Tablet by mouth daily. 09/12/2023 Active propranolol (INDERAL) 20 MG tablet Take 1 Tablet (20 mg) by mouth three times a day. Active rOPINIRole (REQUIP) 3 MG tablet Take 1 Tablet (3 mg) by mouth daily at bedtime. 07/30/[address] (PROTONIX) 40 MG tablet Take 1 Tablet (40 mg) by mouth daily. 12/17/2023 Active Encounters Date Type Department Care Team Description 03/17/2024 12:50 PM CDT Office Visit [facility] [address] [place] [phone] Grayson Tolentino MD Tremor (Primary Dx); Functional tremor 03/17/2024 Telephone [facility] [address] [place] [phone] Andie Louis RN REFERRAL REQUEST 12/31/2023 2:30 PM MELON PACKER Ancillary Procedure [facility] [address] [place] [address] Grayson Tolentino MD 12/31/2023 11:30 AM MELON PACKER Ancillary Procedure [facility] [address] [place] [address] Grayson Tolentino MD 12/31/2023 10:30 AM MELON PACKER Ancillary Procedure [facility] [address] [place] [address] Grayson Tolentino MD Tremor from Last 3 Months Family History Medical History Relation Name Comments Parkinsons Maternal Uncle Relation Name Status Comments Maternal Uncle Other Social History Tobacco Use Types Packs/Day Years Used Date Smoking Tobacco: Never Smokeless Tobacco: Never Tobacco Cessation:Counseling Given: Not Answered Alcohol Use Standard Drinks/Week Comments Not Currently 0 (1 standard drink = 0.6 oz pur e alcohol) Sex and Gender Information Value Date Recorded Sex Assigned at Not on file Gender Identity Not on file Sexual Orientation Not on file Last Filed Vital Signs Vital Sign Reading Time Taken Comments Blood Pressure 123/79 03/17/2024 12:58 PM CDT Pulse 78 03/17/2024 12:58 PM CDT Temperature - - Respiratory Rate - - Oxygen Saturation - - Inhaled Oxygen Concentration - - Weight 122.5 kg (270 lb 1.6 oz) 024 12:58 PM CDT shoes on Height 180.3 cm (5' 11) 12/10/2023 1:35 PM MELON PACKER shoes on Body Mass Index 37.67 12/10/2023 1:35 PM MELON PACKER Plan of Treatment Upcoming Encounters Date Type Department Care Team (Late st Contact Info) Description 09/08/2024 8:50 AM CDT Appointment [facility] [address] [place] [phone] Grayson Tolentino MD [address] [place] [address] Health Maintenance Due Date Last Done Comments Colon Cancer Screening Plan Due 1970 Diabetes Screening- (based o n age and BMI) 1970 Hep C Screening (Preventive Services) 1970 PSA Screening Discussion 1969 HIV Screening (Preventive Services) 1985 Adult Preventive Visit 1987 HepB (1) 1988 Cholesterol 2004 COVID-19 Vaccine (1 - 2022-2 4 season) 2023 Influenza (#1) 2023 DTaP/Tdap/Td (2 - Tdap) 11/01/2029 11/01/2019 Zoster/Shingles Completed 07/30/2023, 10/25/2022 HepA Aged Out No longer eligi ble based on patient's age to complete this topic Hib Aged Out No longer eligi ble based on patient's age to complete this topic IPV (Polio) Aged Out No longer eligi ble based on patient's age to complete this topic MCV4 Aged Out No longer eligi ble based on patient's age to complete this topic Pneumococcal Aged Out No longer eligi ble based on patient's age to complete this topic Procedures Procedure Name Priority Date/Time Associated Diagnosis Comments NM DATSCAN BRAIN SPECT Routine 12/31/2023 3:00 PM MELON PACKER Tremor from Last 3 Months Results * NM DaTscan Brain Spect (12/31/2023 3:00 PM MELON PACKER) Anatomical Region Laterality Modality Head Nuclear Medicine 12/31/2023 3:00 PM MELON PACKER Narrative 12/31/2023 3:19 PM MELON PACKER EXAM: NM DATSCAN BRAIN SPECT LOCATION: [facility] DATE: 12/31/2023 INDICATION: Tremor, Tremor, unspecified. [...] 12/31/2023 EXAM: NM DATSCAN BRAIN SPECT LOCATION: [facility] DATE: 12/31/2023 INDICATION: Tremor, Tremor, unspecified. Complex [...] evidence of parkinsonism. Grayson Tolentino MD RAD [facility] from Last 3 Months Care Teams Power Line Installer Relationship Specialty Start Date End Date No Primary/Referring, Phy PCP - General 12/10/23
--- NOTE | 2024-03-24 09:00 | CT_ITS ---
Patient: GABY SALMERON Facility:?[facility] Patient ID:?[id number] Site Patient ID:?[id number]. Site :?[id number] Study:?CT-Sinus WITHOUT-03/24/2024 9:00:17 AM Ordering Physician:?AMELIA Final Report: Indication: Chronic sinusitis, trouble breathing Technique: Performed without IV contrast Comparison: None available Findings: Frontal sinuses: Clear. Ethmoid sinuses: Patchy opacities bilaterally. Maxillary sinuses: Mild mucosal thickening both maxillary sinuses right greater than left. The maxillary sinus drainage pathways are patent on both sides. Sphenoid sinuses: Clear on the left with patent left sphenoethmoidal recess. Mucosal thickening on the right with partial obstruction of the right spenoidoethmoidal recess. Nasal Cavity: Slight rightward curvature of the nasal septum. Tiny le bullosa both middle turbinates. No polyps No TMJ abnormalities identified. The visualized portions of the orbits, intracranial contents and upper soft tissue neck are grossly negative. Impression: 1. Mild bilateral sinus disease involving the maxillary sinuses, the right sphenoid sinus and both ethmoid sinuses. 2. Partial obstruction of the right sphenoid ethmoidal recess. Remaining drainage pathways are clear. Please note that all CT scans at this facility use dose modulation, iterative reconstruction, and/or weight-based dosing when appropriate to reduce radiation dose to as low as reasonably achievable. Dictated by Mickey Magaña MD @ 03/24/2024 1:28:58 PM Signed by:?Mickey Magaña MD @03/24/2024 1:28:58 PM (Electronic Signature)
== END 2024-03-24 08:34 | disposition home or self-care (01) ==
LOC: CT 08:36
PROVIDERS: PCP Family Medicine; Visit Provider Otolaryngology
DX: J32.9 Chronic sinusitis, unspecified (principal); J32.0 Chronic maxillary sinusitis; J32.3 Chronic sphenoidal sinusitis
CPT/HCPCS: 70486

== ENCOUNTER 2024-04-21 19:53 | Outpatient (CLI) | payer BC, SELFPAY ==
--- OUTSIDE RECORDS SUMMARY | 2024-04-21 19:56 | XMS_ITS | Clinical Summary ---
Author Organization [employer] [facility] Address [place], [place] [address] Care Team Providers Care Plaster Tender Name Role Phone Maksim Tomas DO Primary [...] 01/22/2023 Adjustment disorder with depressed mood 06/20/20 Alcohol use disorder, mild, abuse 06/20/2020 Essential hypertension 02/25/2018 Chronic right shoulder pain 12/29/2017 Hyperlipemia, mixed Obesity Resolved Problems Problem Noted Date Diagnosed Date Resolved Date Suicide attempt 10/25/2022 01/22/2023 Encounters Date Type Department Care Team Description 03/01/2024 1:18 PM CDT - 03/01/2024 3:05 PM CDT Emergency [facility] [address] [place] [address] Julian Fernández MD Chest wall pain (Primary Dx) Discharge Disposition: Against Medical Advice or Discontinued Care 03/01/2024 Travel 02/25/2024 12:30 PM CDT Office Visit [facility] [address] [place] [address] Ronald Gongora, AuD Hearing Problem 02/25/2024 Travel 02/23/2024 Telephone [facility] [address] [place] [address] Ronald Gongora, AuD 02/11/2024 Travel from Last 3 Months Immunizations Name Administration [...] for age 15-65 1984 COVID-19 vaccine series ( - 2022- season) 2023 BMI (ht and wt on same day) for age 18+ 10/25/2023 10/25/2022, 02/14/2021, 01/03/2021, Additional history exists Depression screening for age 12+ 10/25/2023 10/25/2022, 06/29/2020, 06/22/2020, Additional history exists Influenza for age 50-64 07/25/2024 Fecal testing sDNA-FIT (Cologuard) for age 45-75 08/12/2026 08/12/2023 Lipids for age 45-75 10/25/2027 10/25/2022, 11/01/20 19 Tetanus booster 11/01/2029 11/01/2019 Fecal testing non-DNA (FIT,FOBT,iFOBT) for age 45-75 Discontinued 11/01/2019, 08/14/2019 Tdap Completed 11/01/2019 Hepatitis C screening for ag e 18-79 Completed 11/09/2020 Zoster (shingles) series for age 50+ Completed 07/30/2023, 10/25/2022 Medical Devices Implanted Type Area Pre Algebra Teacher Device Identifier Shelf Expiration Date Model / Serial / Lot Wire Kirs .[id number]/[id number] - [id number] Implanted:Qty: 2 on 08/07/2010 at [facility] Left: Hand DEPUY 1644-10-000 # / / 2 253 03 AUG 2010 Explanted Type Area Pre Algebra Teacher Device Identifier Shelf Expiration Date Model / Serial / Lot Wire Kirs .[id number] Smoothacemedical - [id number] Explanted:Qty: 1 on 08/07/2010 at [facility] Left: Hand [employer] [id number] 00# [...] REFLEX MEASURED LDL Routine 10/25/2022 9:02 AM JUNIOR PROGRAMMER Encounter for screening for lipoid disorders ANTI HCV Routine 11/09/2020 9:46 AM JUNIOR PROGRAMMER Abnormal LFTs OCCULT BLOOD IFOBT STOOL Routine 11/01/2019 8:43 AM JUNIOR PROGRAMMER Screening for colon cancer from Last 3 [...] For Patients: ??As a result of the Century Cures Act, medical imaging exams and procedure [...] 6-15 ng/L ng/L 03/01/2024 2:17 PM CDT [facility] Blood BLOOD SPECIMEN / Unknown Venipuncture / Unknown 03/01/2024 1:51 PM CDT 03/01/2024 1:55 PM CDT Narrative [facility] - 03/01/2024 2:17 PM CDT hs-cTnT [...] emergency department patient population. Derrick VILLAFANA CHEMISTRY [facility] [address] [place] [address] * (ABNORMAL) CBC WITH AUTO DIFFERENTIAL (03/01/2024 1:51 PM CDT) [facility] WHITE BLOOD COUNT 7.0 4.5 - 11.0 thou/cu mm 03/01/2024 1:58 PM CDT [facility] RED BLOOD COUNT 4.40 4.30 - 5.90 mil/cu mm 03/01/2024 1:58 PM CDT [facility] HEMOGLOBIN 13.2(L) 13.5 - 17.5 g/dL 03/01/2024 1:58 PM CDT [facility] HEMATOCRIT 41.2 37.0 - 53.0 % 03/01/2024 1:58 PM [facility] MCV 94 80 - 100 fL 03/01/2024 1:58 PM CDT [facility] MCH 30.0 26.0 - 34.0 pg 03/01/2024 1:58 [facility] MCHC 32.0 32.0 - 36.0 g/dL 03/01/2024 1:58 PM [facility] RDW 15.0 11.5 - 15.5 % 03/01/2024 1:58 PM [facility] PLATELET COUNT 322 140 - 440 thou/cu mm 03/01/2024 1:58 PM [facility] MPV 8.8 6.5 - 11.0 fL 03/01/2024 1:58 PM [facility] % NEUT 58.1 % 03/01/2024 1:58 PM [facility] % LYMPH 27.1 % 03/01/2024 1:58 PM [facility] % MONO 12.0 % 03/01/2024 1:58 PM [facility] % EOS 2.1 % 03/01/2024 1:58 PM [facility] % BASO 0.7 % 03/01/2024 1:58 PM [facility] ABSOLUTE NEUTROPHILS 4.1 1.7 - 7.0 thou/cu mm 03/01/2024 1:58 PM [facility] ABSOLUTE LYMPHOCYTES 1.9 0.9 - 2.9 thou/cu mm 03/01/2024 1:58 PM [facility] ABSOLUTE MONOCYTES 0.8 <0.9 thou/cu mm 03/01/2024 1:58 PM [facility] ABSOLUTE EOSINOPHILS 0.2 <0.5 thou/cu mm 03/01/2024 1:58 PM [facility] ABSOLUTE BASOPHILS 0.1 <0.3 thou/cu mm 03/01/2024 1:58 PM [facility] Blood BLOOD SPECIMEN / Unknown Venipuncture / Unknown 03/01/2024 1:51 PM CDT 03/01/2024 1:55 PM T Derrick VILLAFANA HEMATOLOGY [facility] [address] [place] [address] * PROTIME-INR (03/01/2024 1:51 PM CDT) INR 0.9 <1.3 03/01/2024 2:06 PM CDT [facility] PROTIME 10.6 10.3 - 12.3 sec 03/01/2024 2:06 PM CDT [facility] Blood BLOOD SPECIMEN / Unknown Venipuncture / Unknown 03/01/2024 1:51 PM CDT 03/01/2024 1:55 PM CDT Narrative [facility] - 03/01/2024 2:06 PM CDT ?Therapeutic [...] patient is on UFH. Derrick VILLAFANA HEMATOLOGY [facility] [address] [place] [address] * MAGNESIUM (03/01/2024 1:51 PM CDT) Pathologist [facility] MAGNESIUM 1.9 1.6 - 2.6 mg/dL 03/01/2024 2:19 PM CDT [facility] Blood BLOOD SPECIMEN / Unknown Venipuncture / Unknown 03/01/2024 1:51 PM CDT 03/01/2024 1:55 PM CDT Derrick VILLAFANA CHEMISTRY [facility] [address] [place] [address] * LIPASE (03/01/2024 1:51 PM CDT) LIPASE 29.8 13.0 - 60.0 IU/L 03/01/2024 2:52 PM CDT [facility] Blood BLOOD SPECIMEN / Unknown Venipuncture / Unknown 03/01/2024 1:51 PM CDT 03/01/2024 1:55 PM CDT Julian Fernández MD CHEMISTRY Performing Organization Address [facility] Co de Phone Number [facility] [address] [place] [address] * (ABNORMAL) HEPATIC FUNCTION PANEL (03/01/2024 1:51 PM CDT) ALBUMIN 4.2 4.0 - 4.9 g/dL 03/01/2024 2:55 PM CDT [facility] PROTEIN,TOTAL 6.9 6.0 - 8.0 g/dL 03/01/2024 2:55 PM T [facility] BILIRUBIN,TOTAL 1.3(H) 0.0 - 1.2 mg/dL 03/01/2024 2:55 PM T [facility] BILIRUBIN,DIRECT 0.3 0.0 - 0.3 mg/dL 03/01/2024 2:55 PM [facility] BILIRUBIN,INDIRE CT 1.0(H) 0.2 - 0.8 mg/dL 03/01/2024 2:55 PM T [facility] ALK PHOSPHATASE 80 40 - 129 IU/L 03/01/2024 2:55 PM T [facility] ALT (SGPT) 36 10 - 50 IU/L 03/01/2024 2:55 PM T [facility] AST (SGOT) 44 10 - 50 IU/L 03/01/2024 2:55 PM T [facility] Blood BLOOD SPECIMEN / Unknown Venipuncture / Unknown 03/01/2024 1:51 PM CDT 03/01/2024 1:55 PM CDT Julian Fernández MD CHEMISTRY [facility] [address] [place] [address] * (ABNORMAL) BASIC METABOLIC PANEL (03/01/2024 1:51 PM CDT) SODIUM 138 136 - 145 mmol/L 03/01/2024 2:17 PM T [facility] POTASSIUM 3.8 3.5 - 5.1 mmol/L 03/01/2024 2:17 PM T [facility] CHLORIDE 98 98 - 107 mmol/L 03/01/2024 2:17 PM [facility] CO2,TOTAL 28 22 - 29 mmol/L 03/01/2024 2:17 PM [facility] ANION GAP 12 5 - 18 03/01/2024 2:17 PM [facility] GLUCOSE 98 70 - 99 mg/dL 03/01/2024 2:17 PM [facility] CALCIUM 9.2 8.6 - 10.0 mg/dL 03/01/2024 2:17 PM [facility] BUN 10 6 - 20 mg/dL 03/01/2024 2:17 PM [facility] CREATININE 1.00 0.70 - 1.20 mg/dL 03/01/2024 2:17 PM [facility] BUN/CREAT RATIO 10 10 - 20 2:17 PM [facility] eGFR 89(L) >90 mL/min/1.7 3m2 03/01/2024 2:17 PM [facility] Comment:As of 2022, eG FR is calculated by the CKD-EPI creatinine equation without race adjustment. ??eGFR can be influenced by muscle mass, exercise, and diet. ??The reported eGFR is an estimation only and is only applicable if the renal function is stable. Blood BLOOD SPECIMEN / Unknown Venipuncture / Unknown 03/01/2024 1:51 PM CDT 03/01/2024 1:55 PM CDT Derrick VILLAFANA CHEMISTRY Performing Organization Address City/[facility] Co de Phone Number [facility] [address] [place] [address] * EKG 12 LEAD (03/01/2024 1:24 PM CDT) Pathologist [facility] Interpretation Normal sinus rhythm Normal ECG When compared with ECG of 08-NOV-2023 19:31, Vent. rate has decreased BY ??38 BPM BEYOND NOW Ventricular Rate 73 BPM BEYOND NOW Atrial Rate 73 BPM BEYOND NOW P-R Interval 158 ms BEYOND NOW QRS Duration 92 ms BEYOND NOW QT 404 ms BEYOND NOW QTc 445 ms BEYOND NOW P [place] 35 degrees BEYOND NOW R [place] 19 degrees BEYOND NOW T [place] 41 degrees BEYOND NOW 03/01/2024 1:24 PM CDT 03/01/2024 7:26 PM CDT Derrick VILLAFANA EKG ORD Performing Organization Address [facility] Co de Phone Number [place] NOW [place], [place] * SCAN-DIAGNOSTIC REPORT (02/27/2024 12:00 AM CDT) Scanner OTHER * SDNA-FIT EXTERNAL (COLOGUARD) (08/12/2023 2:18 PM CDT) Pathologist [facility] NONINV COLON CA DNA+OCC BLD SCRN STL-IMP Negative Negative 08/19/2023 10:07 AM CDT [employer] (CLIA #:[id number]) Comment: NEGATIVE TEST RESULT. A negative Cologuard [...] cancer. ??Following a negative Cologuard result, the [place] Cancer Society and U.S. Multi-Society Task Force screening guidelines recommend a Cologuard re-screening interval of 3 years. References: [place] [employer] Guideline for Colorectal Cancer Screening: https://www.cancer.org/cancer/fqtet-pniqxb-jzzkql/eiwrpopzs-qslgwufkb-euuykvq/ac s-rec ommendations.html.; Marino DK, Bravo ARANDA, Vanessa GamboaK, Colorectal Cancer Screening: Recommendations for Physicians and Patients from the U.S. Multi-Society Task Force on Colorectal Cancer Screening , Am J Gastroenterology 2017; 112:3481-7216. TEST DESCRIPTION: Composite algorithmic analysis of stool [...] screened with both Cologuard and colonoscopy. (Latisha Foster, N Engl J Med 2014;370(14):5687-2161.) Cologuard may produce a false negative or false positive result (no colorectal cancer or precancerous polyp present at colonoscopy follow up). A negative Cologuard test result does not guarantee the absence of CRC or advanced adenoma (pre-cancer). The current Cologuard screening interval is every 3 years. ([place] Cancer Society and U.S. Multi-Society Task Force). Cologuard performance data in a 10,000 patient pivotal study using colonoscopy as the reference method can be accessed at the following location: www.[email or web address].velingo/results. Additional description of the Cologuard test process, warnings and precautions can be found at www.[employer]Vox[employer]rd.com. Stool specimen (specimen) (Rectum) 08/12/2023 2:18 PM CDT 08/14/2023 9:40 PM CDT Jorge Alberto Vera MD URINE [employer] (CLIA #:[id number]) [place] [address], * LIPID PANEL W REFLEX MEASURED LDL ([id number]) (10/25/2022 9:02 AM JUNIOR PROGRAMMER) CHOLESTEROL,TOTAL 191 100 - 199 mg/dL 10/27/2022 2:56 AM JUNIOR PROGRAMMER [facility] TRIGLYCERIDES 130 <150 mg/dL 10/27/2022 2:56 AM JUNIOR PROGRAMMER [facility] HDL CHOLESTEROL 60 >40 mg/dL 2:56 AM JUNIOR PROGRAMMER [facility] NON-HDL CHOLESTEROL 131 <145 mg/dl 10/27/2022 2:56 AM JUNIOR PROGRAMMER [facility] CHOL/HDL RATIO 3.18 <4.50 10/27/2022 2:56 AM JUNIOR PROGRAMMER [facility] LDL CHOLESTEROL 105 <=130 mg/dL 10/27/2022 2:56 AM JUNIOR PROGRAMMER [facility] VLDL CHOLESTEROL 26 <=30 mg/dL 10/27/2022 2:56 AM JUNIOR PROGRAMMER [facility] PROVIDER ORDERED STATUS RANDOM 10/27/2022 2:56 AM JUNIOR PROGRAMMER [facility] Blood BLOOD SPECIMEN / Unknown Venipuncture / Unknown 10/25/2022 9:02 AM JUNIOR PROGRAMMER 10/25/2022 9:08 AM JUNIOR PROGRAMMER Nikki VILLAFANA CHEMISTRY [facility] [address] [place] [address], [place] * ANTI HCV (11/09/2020 9:46 AM JUNIOR PROGRAMMER) HEPATITIS C ANTIBODY Non-React william Non-React william 11/09/2020 6:36 PM JUNIOR PROGRAMMER [facility] Comment:Antibodies to HCV no t detected; does not exclude the possibility of exposure to HCV. Blood BLOOD SPECIMEN / Unknown Venipuncture / Unknown 11/09/2020 9:46 AM JUNIOR PROGRAMMER 11/09/2020 9:56 AM JUNIOR PROGRAMMER Tod Delgadillo MD SEND OUTS Performing Organization Address City/[facility]/ZIP Co de Phone Number [facility] [address] [place] [address], [place] * OCCULT BLOOD IFOBT STOOL (11/01/2019 8:43 AM JUNIOR PROGRAMMER) STOOL BLOOD ,IFOBT Negative Negative 11/01/2019 9:06 AM JUNIOR PROGRAMMER [facility] Stool STOOL SPECIMEN / Unknown Non-Blood / Unknown 11/01/2019 8:43 AM JUNIOR PROGRAMMER 11/01/2019 8:48 AM JUNIOR PROGRAMMER Alex Masterson DO LABORATORY [facility] [address] [place] [address], [place] [phone] from Last 3 Months or Most Recently Relevant to Health Maintenance Advance Directives * Full Code (Latest Code Status on File) Date Activated Date Inactivated Comments 06/19/2020 10:47 PM 06/20/2020 8:17 PM * Full Code Date Activated Date Inactivated Comments 08/07/2010 12:59 PM 08/07/2010 6:38 PM * Full Code Date Activated Date Inactivated Comments 08/07/2010 12:57 PM 08/07/2010 12:59 PM Care Teams Plaster Tender Relationship Specialty Start Date End Date Maksim Tomas DO [address] [facility] [address] PCP - General Family Practice 09/10/22
--- OUTSIDE RECORDS SUMMARY | 2024-04-21 19:56 | XMS_ITS | Clinical Summary ---
Author Organization [facility] Address [address] [place] [address] Care Team Providers Care Children'S Author Name Role Phone No Primary/Referring, Phy Primary Care Provider Unavailable Source Comments You are receiving this document as you are listed as the primary care provider,follow-up provider, or the patient has been referred to you for consultation.This is in compliance with the Medicare and[facility] Memorial Hospitalcaid EHR Incentive Program,which states Providers who transition their patient to another setting of careor provider of care or refers their patient to another provider of care shouldprovide summary care record for each transition of care or referral. [facility] Allergies No known active allergies Medications Medication [...] Description 03/17/2024 12:50 PM CDT Office Visit [facility] [place], [place] [phone] Grayson Tolentino MD Tremor (Primary Dx); Functional tremor 03/17/2024 Telephone [facility] [address] [place] [address] Andie Louis LIFESTYLE CONSULTANT REQUEST from Last 3 Months Family History Medical [...] 180.3 cm (5' 11) 12/10/2023 1:35 PM LODGING FACILITIES ATTENDANT shoes on Body Mass Index 37.67 12/10/2023 1:35 PM LODGING FACILITIES ATTENDANT Plan of Treatment Upcoming Encounters Date Type Department Care Team (Late st Contact Info) Description 09/08/2024 8:50 AM CDT Appointment [facility] [address] [place] [phone] Grayson Tolentino MD [address] [place] [address] Health Maintenance Due Date Last Done Comments Colon Cancer Screening Plan Due 1970 Diabetes Screening- (based o n age and BMI) 1969 Hep C Screening (Preventive Services) 1969 PSA Screening Discussion 1969 HIV Screening (Preventive Services) 1985 Adult Preventive Visit 1987 HepB (1) 1988 Cholesterol 2004 COVID-19 Vaccine (1 - 2022-2 4 season) 2023 Influenza (Season Ended) 2024 DTaP/Tdap/Td (2 - Tdap) 11/01/2029 11/01/2019 Zoster/Shingles [...] on patient's age to complete this topic Care Teams Children'S Author Relationship Specialty Start Date End Date No Primary/Referring, Phy PCP - General 12/10/23
--- OUTSIDE RECORDS SUMMARY | 2024-04-21 19:56 | XMS_ITS | Encounter Summary ---
Author Organization [facility] Address [address] [place] [address] Care Team Providers Care Supervisor Brew [employer] Name Role Phone No Primary/Referring, Phy Primary Care Provider Unavailable Reason for Referral * Therapies (Routine) - New Request Specialty Diagnoses / Procedures Referred By Smiley cueto Referred To Contact Diagnoses Functional tremor Grayson Tolentino MD [address] [place] [address] Referral ID Status Reason Start Date Expiration Date V isits Requested Visits Authorized [id number] New Request 03/17/2024 03/17/2025 1 1 Scheduling [...] To Contact Diagnoses Tremor Grayson Tolentino MD [address] [place] [address] Referral ID Status Reason Start Date Expiration Date V isits Requested Visits Authorized [id number] New Request 03/17/2024 09/13/2024 1 1 Scheduling [...] Description 03/17/2024 12:50 PM CDT Office Visit [facility] [place], [place] [id number] Grayson Tolentino MD [address] [place], [place] [id number] Tremor (Primary Dx); Functional tremor Social History [...] Body Mass Index 37.67 12/10/2023 1:35 PM FILLING HAND documented in this encounter Patient Instructions * Patient Instructions* Grayson Tolentino MD - 03/17/2024 12:50 PM CDT [email or web address] Please contact us using MyChart or by calling the [facility] nurse line at [phone]. Two easy ways to stay connected with what is going on at [facility]: If you have not already done so, we encourage you to sign up (for free) to be on our e-mailing list, so that you will receive information about upcoming classes, events, and activities hosted by [facility]! To sign up, simply send an email to [email or web address] indicating that you would like to be included. 2. Follow us on Facebook to learn more about current news and upcoming events. Find us at [facility] [employer]! Learn more about our ongoing [facility] studies here! [email or web address] documented in this encounter Progress Notes * Grayson Tolentino MD - 03/17/2024 12:50 PM CDT [facility] Follow-up Note History of Present [...] Info) Description 09/08/2024 8:50 AM CDT Appointment [facility] [address] [place] [address] Grayson Tolentino MD [address] [place] [address] Scheduled Referrals Name Type Priority Associated Diagnoses Orde r Schedule Neurology Consult-Adults Referral Routine Tremor Ordered: 03/17/2024 Physical Therapy Referral Routine Functional tremor Ordered: 03/17/2024 documented as of this encounter Visit Diagnoses Diagnosis Tremor- Primary Abnormal involuntary movements Functional tremor Musculoskeletal malfunction arising from mental factors documented in this encounter Care Teams Supervisor Brew House Relationship Specialty Start Date End Date No Primary/Referring, Phmiguelito PCP - General 12/10/23 documented as of this encounter
--- OUTSIDE RECORDS SUMMARY | 2024-04-21 19:56 | XMS_ITS | Encounter Summary ---
Author Organization [facility] Address [address] [place] [address] Care Team Providers Care Waitress Name Role Phone No Primary/Referring, Phy Primary Care Provider Unavailable Reason for Visit * Reason Comments REFERRAL REQUEST Encounter Details Date Type Department Care Team (Late st Contact Info) Description 03/17/2024 Telephone [facility] [address] [place], [place] [phone] Andie Louis BRAIDING MACHINE TENDER REQUEST Social History Tobacco Use Types Packs/Day [...] CDT ----- Please assist with referrals: -To [facility] neurology for second opinion (letter summary also written) -To [facility] rehab / PT Grayson Mccoy documented in this encounter Plan of Treatment Upcoming Encounters Date Type Department Care Team (Late st Contact Info) Description 09/08/2024 8:50 AM CDT Appointment [facility] [address] [place] [address] Grayson Tolentino MD [address] [place] [address] documented as of this encounter Visit Diagnoses Not on filedocumented in this encounter Care Teams Waitress Relationship Specialty Start Date End Date No Primary/Referring, Phy PCP - General 12/10/23 documented as of this encounter
--- NOTE | 2024-05-04 11:47 | W.PM.SLEEP ---
Sleep Study Details Details Interpreting Provider: Nick Date of Sleep Study: 04/21/24 Sleep Study Details: STUDY TYPE:? Attended hospital-based ? BMI:? 36.3 ORDERING PROVIDER:? Nick INDICATION:? Concerns about sleep apnea ? SLEEP SUMMARY:? 313.5 minutes total sleep time RESPIRATORY SUMMARY:? Mean oxygen awake 95 asleep 93 minimum 72 27.8 minutes oxygen between 80 and 88%, 1.7 minutes oxygen between 70 and 79% AHI 33.7 per rule 1A, 18 per CMS guideline Supine REM AHI 49.7. Note entire study was done in the supine position PERIODIC LIMB MOVEMENTS OF SLEEP:? Index 16.3, index with arousal 1.1 CARDIAC:? Awake 70, asleep 65, no arrhythmias noted IMPRESSION:? 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 RECOMMENDATION: Treatment options include CPAP AutoSet versus dental appliance. CPAP is likely to be more effective.
== END 2024-04-21 19:54 | disposition home or self-care (01) ==
LOC: SLEEP 19:53
PROVIDERS: PCP Family Medicine; Visit Provider Otolaryngology
DX: G47.33 Obstructive sleep apnea (adult) (pediatric) (principal)
CPT/HCPCS: 95810; A9270

== ENCOUNTER 2024-05-19 11:35 | Outpatient (CLI) | payer BC, SELFPAY ==
--- OUTSIDE RECORDS SUMMARY | 2024-05-19 11:38 | XMS_ITS | Encounter Summary ---
Author Organization [employer] Address [address] [place] [address] Care Team Providers Care Bus Operator Name Role Phone No Primary/Referring, Phy Primary Care Provider Unavailable Reason for Visit * Reason Comments REFERRAL REQUEST Encounter Details Date Type Department Care Team (Late st Contact Info) Description 03/17/2024 Telephone [facility] [address] [place], [place] [address] Andie Louis CARPENTER ASSISTANT INSTALLER REQUEST Social History Tobacco Use Types Packs/Day [...] as of this encounter Nursing Notes * Adnie Louis RN - 03/17/2024 3:49 PM CDT Referrals faxed. * Andie Louis RN - 03/17/2024 3:31 PM CDT ----- Message from Grayson Tolentino MD sent at 03/17/2024 3:23 PM CDT ----- Please assist with referrals: -To [facility] neurology for second opinion (letter summary also written) -To [facility] rehab / PT Grayson Mccoy documented in this encounter Plan of Treatment Upcoming Encounters Date Type Department Care Team (Late st Contact Info) Description 09/08/2024 8:50 AM CDT Appointment [facility] [address] [place] [address] Grayson Tolentino MD [address] [place] [address] documented as of this encounter Visit Diagnoses Not on filedocumented in this encounter Care Teams Bus Operator Relationship Specialty Start Date End Date No Primary/Referring, Phy PCP - General 12/10/23 documented as of this encounter
--- OUTSIDE RECORDS SUMMARY | 2024-05-19 11:38 | XMS_ITS | Clinical Summary ---
Author Organization [employer] [facility] [employer] [facility] Address [place], [place] [address] Care Team Providers Care Roving Hand Name Role Phone Maksim Tomas DO Primary Care Provider [phone] Allergies No known active allergies Medications Medication [...] CDT - 03/01/2024 3:05 PM CDT Emergency [facility] [address] [place] [address] Julian Fernández MD Chest wall pain (Primary Dx) Discharge Disposition: Against Medical Advice or Discontinued Care 03/01/2024 Travel 02/25/2024 12:30 PM CDT Office Visit [facility] [address] [place] [address] Ronald Gongora AuD Hearing Problem 02/25/2024 Travel 02/23/2024 Telephone [facility] [address] [place] [address] Ronald Gongora, AuD from Last 3 Months Immunizations Name Administration [...] 07/30/2023, 10/25/2022 Medical Devices Implanted Type Area Small Products I Assembler Device Identifier Shelf Expiration Date Model / Serial / Lot Wire Kirs .[id number]/[id number] - [id number] Implanted:Qty: 2 on 08/07/[address] [facility] Left: Hand DEPUY 1644-10-000 # / / 2 253 03 AUG 2010 Explanted Type Area Small Products I Assembler Device Identifier Shelf Expiration Date Model / Serial / Lot Wire Kirs .[id number] Smoothacemedical - [id number] Explanted:Qty: 1 on 08/07/[address] [facility] Left: Hand [employer] 1645-10-0 [...] REFLEX MEASURED LDL Routine 10/25/2022 9:02 AM TREASURY MANAGER Encounter for screening for lipoid disorders ANTI HCV Routine 11/09/2020 9:46 AM TREASURY MANAGER Abnormal LFTs OCCULT BLOOD IFOBT STOOL Routine 11/01/2019 8:43 AM TREASURY MANAGER Screening for colon cancer from Last 3 [...] @ 03/01/2024 14:13:10 (Electronically Signed) Derrick VILLAFANA [facility] PILY GING * TROPONIN T (HS) ACUTE W/2HR REFLEX (03/01/2024 1:51 PM CDT) TROPONIN T HS 12 6-15 ng/L ng/L 03/01/2024 2:17 PM CDT [facility] Blood BLOOD SPECIMEN / Unknown Venipuncture / Unknown 03/01/2024 1:51 PM CDT 03/01/2024 1:55 PM CDT [facility] - 03/01/2024 2:17 PM CDT hs-cTnT [...] emergency department patient population. Derrick VILLAFANA CHEMISTRY [facility] [address] [place] [address] * (ABNORMAL) CBC WITH AUTO DIFFERENTIAL (03/01/2024 1:51 PM CDT) Pathologist [facility] WHITE BLOOD COUNT 7.0 4.5 - 11.0 thou/cu mm 03/01/2024 1:58 PM CDT [facility] RED BLOOD COUNT 4.40 4.30 - 5.90 mil/cu mm 03/01/2024 1:58 PM CDT [facility] HEMOGLOBIN 13.2(L) 13.5 - 17.5 g/dL 03/01/2024 1:58 PM CDT [facility] HEMATOCRIT 41.2 37.0 - 53.0 % 03/01/2024 1:58 PM [facility] MCV 94 80 - 100 fL 03/01/2024 1:58 PM CDT [facility] MCH 30.0 26.0 - 34.0 pg 03/01/2024 1:58 PM [facility] MCHC 32.0 32.0 - 36.0 g/dL 03/01/2024 1:58 PM [facility] RDW 15.0 11.5 - 15.5 % 03/01/2024 1:58 PM [facility] PLATELET COUNT 322 140 - 440 thou/cu mm 03/01/2024 1:58 PM [facility] MPV 8.8 6.5 - 11.0 fL 03/01/2024 1:58 PM [facility] % NEUT 58.1 % 03/01/2024 1:58 PM [facility] % LYMPH 27.1 % 03/01/2024 1:58 PM [facility] % MONO 12.0 % 03/01/2024 1:58 PM [facility] % EOS 2.1 % 03/01/2024 1:58 PM [facility] % BASO 0.7 % 03/01/2024 1:58 PM [facility] ABSOLUTE NEUTROPHILS 4.1 1.7 - 7.0 thou/cu mm 03/01/2024 1:58 PM [facility] ABSOLUTE LYMPHOCYTES 1.9 0.9 - 2.9 thou/cu mm 03/01/2024 1:58 PM [facility] ABSOLUTE MONOCYTES 0.8 <0.9 thou/cu mm 03/01/2024 1:58 PM [facility] ABSOLUTE EOSINOPHILS 0.2 <0.5 thou/cu mm 03/01/2024 1:58 PM [facility] ABSOLUTE BASOPHILS 0.1 <0.3 thou/cu mm 03/01/2024 1:58 PM [facility] Blood BLOOD SPECIMEN / Unknown Venipuncture / Unknown 03/01/2024 1:51 PM CDT 03/01/2024 1:55 PM T Derrick VILLAFANA HEMATOLOGY [facility] [address] [place] [address] * PROTIME-INR (03/01/2024 1:51 PM CDT) [facility] INR 0.9 <1.3 03/01/2024 2:06 PM CDT [facility] PROTIME 10.6 10.3 - 12.3 sec 03/01/2024 2:06 PM CDT [facility] Blood BLOOD SPECIMEN / Unknown Venipuncture / Unknown 03/01/2024 1:51 PM CDT 03/01/2024 1:55 PM CDT Narrative [facility] - 03/01/2024 2:06 PM CDT [...] patient is on UFH. Derrick VILLAFANA HEMATOLOGY [facility] [address] [place] [address] * MAGNESIUM (03/01/2024 1:51 PM CDT) [facility] MAGNESIUM 1.9 1.6 - 2.6 mg/dL 03/01/2024 2:19 PM CDT [facility] Blood BLOOD SPECIMEN / Unknown Venipuncture / Unknown 03/01/2024 1:51 PM CDT 03/01/2024 1:55 PM CDT Derrick VILLAFANA CHEMISTRY [facility] [address] [place] [address] * LIPASE (03/01/2024 1:51 PM CDT) LIPASE 29.8 13.0 - 60.0 IU/L 03/01/2024 2:52 PM CDT [facility] Blood BLOOD SPECIMEN / Unknown Venipuncture / Unknown 03/01/2024 1:51 PM CDT 03/01/2024 1:55 PM CDT Julian Fernández MD CHEMISTRY Performing Organization Address [facility] Co de Phone Number [facility] [address] [place] [address] * (ABNORMAL) HEPATIC FUNCTION PANEL (03/01/2024 1:51 PM CDT) ALBUMIN 4.2 4.0 - 4.9 g/dL 03/01/2024 2:55 PM CDT [facility] PROTEIN,TOTAL 6.9 6.0 - 8.0 g/dL 03/01/2024 2:55 PM T [facility] BILIRUBIN,TOTAL 1.3(H) 0.0 - 1.2 mg/dL 03/01/2024 2:55 PM T [facility] BILIRUBIN,DIRECT 0.3 0.0 - 0.3 mg/dL 03/01/2024 2:55 PM [facility] BILIRUBIN,INDIRE CT 1.0(H) 0.2 - 0.8 mg/dL 03/01/2024 2:55 PM [facility] ALK PHOSPHATASE 80 40 - 129 IU/L 03/01/2024 2:55 PM T [facility] ALT (SGPT) 36 10 - 50 IU/L 03/01/2024 2:55 PM T [facility] AST (SGOT) 44 10 - 50 IU/L 03/01/2024 2:55 PM T [facility] Blood BLOOD SPECIMEN / Unknown Venipuncture / Unknown 03/01/2024 1:51 PM CDT 03/01/2024 1:55 PM CDT Julian Fernández MD CHEMISTRY Performing Organization Address [facility] Co de Phone Number [facility] [address] [place] [address] * (ABNORMAL) BASIC METABOLIC PANEL (03/01/2024 1:51 PM CDT) SODIUM 138 136 - 145 mmol/L 03/01/2024 2:17 PM CDT [facility] POTASSIUM 3.8 3.5 - 5.1 mmol/L 03/01/2024 2:17 PM T [facility] CHLORIDE 98 98 - 107 mmol/L 03/01/2024 2:17 PM [facility] CO2,TOTAL 28 22 - 29 mmol/L 03/01/2024 2:17 PM [facility] ANION GAP 12 5 - 18 03/01/2024 2:17 PM [facility] GLUCOSE 98 70 - 99 mg/dL 03/01/2024 2:17 PM [facility] CALCIUM 9.2 8.6 - 10.0 mg/dL 03/01/2024 2:17 PM [facility] BUN 10 6 - 20 mg/dL 03/01/2024 2:17 PM [facility] CREATININE 1.00 0.70 - 1.20 mg/dL 03/01/2024 2:17 PM [facility] BUN/CREAT RATIO 10 10 - 20 2:17 PM [facility] eGFR 89(L) >90 mL/min/1.7 3m2 03/01/2024 2:17 PM [facility] Comment:As of 2022, eG [...] CDT Derrick VILLAFANA CHEMISTRY Performing Organization Address City/[facility]/ZIP Co de Phone Number [facility] [address] [place] [address] * EKG 12 LEAD (03/01/2024 1:24 PM CDT) Pathologist [facility] Interpretation Normal sinus rhythm Normal ECG When compared with ECG of 08-NOV-2023 19:31, Vent. rate has decreased BY ??38 BPM BEYOND NOW Ventricular Rate 73 BPM BEYOND NOW Atrial Rate 73 BPM BEYOND NOW P-R Interval 158 ms BEYOND NOW QRS Duration 92 ms BEYOND NOW QT 404 ms BEYOND NOW QTc 445 ms BEYOND NOW P Kenyon 35 degrees BEYOND NOW R Kenyon 19 degrees BEYOND NOW T Kenyon 41 degrees BEYOND NOW 03/01/2024 1:24 PM CDT 03/01/2024 7:26 PM CDT Derrick VILLAFANA EKG ORD Performing Organization Address [facility] Co de Phone Number BEYOND NOW [place], [place] * SCAN-DIAGNOSTIC REPORT (02/27/2024 12:00 AM CDT) Scanner OTHER * SDNA-FIT EXTERNAL (COLOGUARD) (08/12/2023 2:18 PM CDT) Pathologist [facility] NONINV COLON CA DNA+OCC BLD SCRN STL-IMP Negative Negative 08/19/2023 10:07 AM CDT [email or web address] (CLIA #:[id number]) Comment: NEGATIVE TEST RESULT. A negative Cologuard [...] cancer. ??Following a negative Cologuard result, the [place] Cancer Society and U.S. Multi-Society Task Force screening guidelines recommend a Cologuard re-screening interval of 3 years. References: [place] [employer] Guideline for Colorectal Cancer Screening: https://www.cancer.org/cancer/vjxyu-gqlarf-nciilg/tjujfxywf-pskrzhuvs-jpgmsvb/ac s-rec ommendations.html.; Marino DK, Bravo CR, Vanessa GamboaK, Colorectal Cancer Screening: Recommendations for Physicians and Patients from the U.S. Multi-Society Task Force on Colorectal Cancer Screening , Am J Gastroenterology 2017; 112:0372-4529. TEST DESCRIPTION: Composite algorithmic analysis of stool [...] (Latisha Bahena al, N Engl J Med 2014;370(14):1262-5338.) Cologuard may produce a false negative or false positive result (no colorectal cancer or precancerous polyp present at colonoscopy follow up). A negative Cologuard test result does not guarantee the absence of CRC or advanced adenoma (pre-cancer). The current Cologuard screening interval is every 3 years. ([place] Cancer Society and U.S. Multi-Society Task Force). Cologuard performance data in a 10,000 patient pivotal study using colonoscopy as the reference method can be accessed at the following location: [email or web address]/results. Additional description of the Cologuard test process, warnings and precautions can be found at www.[email or web address] [email or web address]. Stool specimen (specimen) (Rectum) 08/12/2023 2:18 PM CDT 08/14/2023 9:40 PM CDT Jorge Alberto Vera MD URINE [email or web address] (CLIA #:[id number]) [address] [place] [place] [address], * LIPID PANEL W REFLEX MEASURED LDL ([id number]) (10/25/2022 9:02 AM TREASURY MANAGER) CHOLESTEROL,TOTAL 191 100 - 199 mg/dL 10/27/2022 2:56 AM TREASURY MANAGER [facility] TRIGLYCERIDES 130 <150 mg/dL 10/27/2022 2:56 AM TREASURY MANAGER [facility] HDL CHOLESTEROL 60 >40 mg/dL 2:56 AM TREASURY MANAGER [facility] NON-HDL CHOLESTEROL 131 <145 mg/dl 10/27/2022 2:56 AM TREASURY MANAGER [facility] CHOL/HDL RATIO 3.18 <4.50 10/27/2022 2:56 AM TREASURY MANAGER [employer] [facility] LDL CHOLESTEROL 105 <=130 mg/dL 10/27/2022 2:56 AM TREASURY MANAGER [facility] VLDL CHOLESTEROL 26 <=30 mg/dL 10/27/2022 2:56 AM TREASURY MANAGER [facility] PROVIDER ORDERED STATUS RANDOM 10/27/2022 2:56 AM TREASURY MANAGER [facility] Blood BLOOD SPECIMEN / Unknown Venipuncture / Unknown 10/25/2022 9:02 AM TREASURY MANAGER 10/25/2022 9:08 AM TREASURY MANAGER Nikki VILLAFANA CHEMISTRY [facility] [address] [place] [id number], * ANTI HCV (11/09/2020 9:46 AM TREASURY MANAGER) HEPATITIS C ANTIBODY Non-React william Non-React william 11/09/2020 6:36 PM TREASURY MANAGER [facility] Comment:Antibodies to HCV no t detected; does not exclude the possibility of exposure to HCV. Blood BLOOD SPECIMEN / Unknown Venipuncture / Unknown 11/09/2020 9:46 AM TREASURY MANAGER 11/09/2020 9:56 AM TREASURY MANAGER Tod Delgadillo MD SEND OUTS Performing Organization Address [facility] Co de Phone Number [facility] [address] [place] [address], [place] * OCCULT BLOOD IFOBT STOOL (11/01/2019 8:43 AM TREASURY MANAGER) STOOL BLOOD ,IFOBT Negative Negative 11/01/2019 9:06 AM TREASURY MANAGER [facility] Stool STOOL SPECIMEN / Unknown Non-Blood / Unknown 11/01/2019 8:43 AM TREASURY MANAGER 11/01/2019 8:48 AM TREASURY MANAGER Alex Masterson DO LABORATORY [facility] [address] [place] [address], from Last 3 Months or Most Recently Relevant to Health Maintenance Advance Directives * Full Code (Latest Code Status on File) Date Activated Date Inactivated Comments 06/19/2020 10:47 PM 06/20/2020 8:17 PM * Full Code Date Activated Date Inactivated Comments 08/07/2010 12:59 PM 08/07/2010 6:38 PM * Full Code Date Activated Date Inactivated Comments 08/07/2010 12:57 PM 08/07/2010 12:59 PM Care Teams Roving Hand Relationship Specialty Start Date End Date Maksim [place] [place] [address] PCP - General Family Practice 09/10/22
--- OUTSIDE RECORDS SUMMARY | 2024-05-19 11:38 | XMS_ITS | Encounter Summary ---
Author Organization [facility] Address [address] [place] [address] Care Team Providers Care Business Continuity Planner Name Role Phone No Primary/Referring, Phy Primary Care Provider Unavailable Reason for Referral * Therapies (Routine) - New Request Specialty Diagnoses / Procedures Referred By Smiley cueto Referred To Contact Diagnoses Functional tremor Grayson Tolentino MD [address] [place] [address] Referral ID Status Reason Start Date Expiration Date V isits Requested Visits Authorized [id number] New Request 03/17/2024 03/17/2025 1 1 Scheduling [...] To Contact Diagnoses Tremor Grayson Tolentino MD [address] [place] [address] Referral ID Status Reason Start Date Expiration Date V isits Requested Visits Authorized [id number] New Request 03/17/2024 09/13/2024 1 1 Scheduling [...] Description 03/17/2024 12:50 PM CDT Office Visit [facility] [place] [place] [id number] Grayson Tolentino MD [address] [place], [place] [phone] Tremor (Primary Dx); Functional tremor Social History [...] Body Mass Index 37.67 12/10/2023 1: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 Two easy ways to stay connected with what is going on at [facility]: If you have not already done so, we encourage you to sign up (for free) to be on our e-mailing list, so that you will receive information about upcoming classes, events, and activities hosted by [facility]! To sign up, simply send an email to [email or web address] indicating that you would like to be included. 2. Follow us on Facebook to learn more about current news and upcoming events. Find us at [facility] [place] [employer]! Learn more about our ongoing [facility] studies here! [email or web address] documented in this encounter Progress Notes * Grayson Tolentino MD - 03/17/2024 12:50 PM CDT [facility] Follow-up Note History of Present [...] Info) Description 09/08/2024 8:50 AM CDT Appointment [facility] [address] [place] [address] Grayson Tolentino MD [address] [place] [address] Scheduled Referrals Name Type Priority Associated Diagnoses Orde r Schedule Neurology Consult-Adults Referral Routine Tremor Ordered: 03/17/2024 Physical Therapy Referral Routine Functional tremor Ordered: 03/17/2024 documented as of this encounter Visit Diagnoses Diagnosis Tremor- Primary Abnormal involuntary movements Functional tremor Musculoskeletal malfunction arising from mental factors documented in this encounter Care Teams Business Continuity Planner Relationship Specialty Start Date End Date No Primary/Referring, Phmiguelito PCP - General 12/10/23 documented as of this encounter
--- OUTSIDE RECORDS SUMMARY | 2024-05-19 11:38 | XMS_ITS | Clinical Summary ---
Author Organization [facility] Address [address] [place] [address] Care Team Providers Care Mounter Automatic Name Role Phone No Primary/Referring, Phy Primary Care Provider Unavailable Source Comments You are receiving this document as you are listed as the primary care provider,follow-up provider, or the patient has been referred to you for consultation.This is in compliance with the Medicare and[facility] EHR Incentive Program,which states Providers who transition their patient to another setting of careor provider of care or refers their patient to another provider of care shouldprovide summary care record for each transition of care or referral. 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
--- NOTE | 2024-05-19 12:15 | CRLHL7_ITS ---
For Patients: As a result of the Century Cures Act, medical imaging exams and procedure reports are released immediately into your electronic medical record. You may view this report before your referring provider. If you have questions, please contact your health care provider. Technique: FLUORO TIME: 2: 08 MINUTES Esophagram w EZ PAQUE AND EZ DISK Indication: Dysphagia Comparison: None. Findings: No obstruction. Barium tablet passed normally. Sliding hiatal hernia suspected. Exam limited due to patient motility issues. Reflux noted. Impression: Sliding hiatal hernia suspected. No obstruction. Normal passage of barium tablet. Reflux present. Dictated by Mickey Magaña MD @ 05/24/2024 9:10:38 AM (Electronically Signed)
== END 2024-05-19 11:36 | disposition home or self-care (01) ==
LOC: RAD 11:37
PROVIDERS: PCP Otolaryngology; Visit Provider Otolaryngology
DX: R13.10 Dysphagia, unspecified (principal); K44.9 Diaphragmatic hernia without obstruction or gangrene
CPT/HCPCS: 74220

== ENCOUNTER 2025-02-08 07:24 | Outpatient (CLI) | payer BC, SELFPAY ==
--- NOTE | 2025-02-08 08:49 | P.ANES_ITS ---
Anesthesia Charges Start Date/Time Anesthesia Start Date: 02/08/25 Anesthesia Start Time: 08:29 Stop Date/Time Anesthesia Stop Date: 02/08/25 Anesthesia Stop Time: 08:46 Coding CPT Codes CPT Codes: ANES UPR GI NDSC PX NOS - 36320 ([id number]) P3 - PATIENT W/SEVERE SYS DISEASE, QX - COLORING ROOM MAN SVC W/ MD MED DIRECTION, QK - TABLE MAKER 2-4 CNCRNT ANES PROC
--- NOTE | 2025-02-08 08:49 | W.ANESCHARGE ---
Anesthesia Charges Start Date/Time Anesthesia Start Date: 02/08/25 Anesthesia Start Time: 08:29 Stop Date/Time Anesthesia Stop Date: 02/08/25 Anesthesia Stop Time: 08:46 Coding CPT Codes CPT Codes: ANES UPR GI NDSC PX NOS - 98987 ([id number]) P3 - PATIENT W/SEVERE SYS DISEASE, QX - GEOGRAPHIC AREA INTELLIGENCE OFFICER SVC W/ MD MED DIRECTION, QK - EMPLOYEE COMMUNICATIONS INTERN 2-4 CNCRNT ANES PROC
--- NOTE | 2025-02-08 09:40 | P.ANES_ITS ---
Anesthesia Charges Start Date/Time Anesthesia Start Date: 02/08/25 Anesthesia Start Time: 08:29 Stop Date/Time Anesthesia Stop Date: 02/08/25 Anesthesia Stop Time: 08:46 Coding CPT Codes CPT Codes: ANES UPR GI NDSC PX NOS - 45602 ([id number]) QK - STUFFER 2-4 CNCRNT ANES PROC, QX - TAFE LECTURER SVC W/ MD MED DIRECTION, P3 - PATIENT W/SEVERE SYS DISEASE
--- NOTE | 2025-02-08 09:40 | W.ANESCHARGE ---
Anesthesia Charges Start Date/Time Anesthesia Start Date: 02/08/25 Anesthesia Start Time: 08:29 Stop Date/Time Anesthesia Stop Date: 02/08/25 Anesthesia Stop Time: 08:46 Coding CPT Codes CPT Codes: ANES UPR GI NDSC PX NOS - 58956 ([id number]) QK - FISH DRIER 2-4 CNCRNT ANES PROC, QX - CERTIFIED MAINTENANCE WELDER SVC W/ MD MED DIRECTION, P3 - PATIENT W/SEVERE SYS DISEASE
== END 2025-02-08 07:25 | disposition home or self-care (01) ==
LOC: OP CLINIC 07:25
PROVIDERS: PCP Family Medicine; Visit Provider Surgery
DX: R13.10 Dysphagia, unspecified (principal); K22.89 Other specified disease of esophagus; K31.89 Other diseases of stomach and duodenum
CPT/HCPCS: 00731; 43239; J2704; J3490

== ENCOUNTER 2025-04-15 16:24 | Outpatient (CLI) | payer BC, SELFPAY ==
--- NOTE | 2025-04-15 16:45 | CRLHL7_ITS ---
For Patients: As a result of the Century Cures Act, medical imaging exams and procedure reports are released immediately into your electronic medical record. You may view this report before your referring provider. If you have questions, please contact your health care provider. INDICATION: Dysphagia. Difficulty breathing. COMPARISON: None. TECHNIQUE: CT soft tissue neck with IV contrast. Isovue 370, 123 cc IV. FINDINGS: Normal bilateral parotid and submandibular glands. Normal thyroid gland. Scattered small normal-sized cervical lymph nodes bilaterally. No supraclavicular or superior mediastinal adenopathy. Nasopharynx and oropharynx are clear. No inflammation within the paravertebral fat pads or retropharyngeal space. Normal thickness of the epiglottis. Normal glottis with symmetric vocal cords. Airways widely patent. Lung apices are clear. Old fracture deformity of the right clavicle. Normal alignment the cervical spine. No prevertebral soft tissue swelling. Visualized paranasal sinuses mastoid air cells are clear. IMPRESSION: 1. No adenopathy 2. Normal deep soft tissues of the neck. 3. No prevertebral soft tissue swelling. Please note that all CT scans at this facility use dose modulation, iterative reconstruction, and/or weight-based dosing when appropriate to reduce radiation dose to as low as reasonably achievable. Dictated by Juvenal Reed MD @ 04/16/2025 10:43:52 AM (Electronically Signed)
== END 2025-04-15 16:25 | disposition home or self-care (01) ==
LOC: CT 16:25
PROVIDERS: PCP Family Medicine; Visit Provider Otolaryngology
DX: R13.10 Dysphagia, unspecified (principal)
CPT/HCPCS: 70491; Q9967

== ENCOUNTER 2025-04-20 16:31 | Outpatient (CLI) | payer BC, SELFPAY | END 2025-04-20 16:32 | disposition home or self-care (01) | PROVIDERS: PCP Family Medicine; Visit Provider Internal Medicine | DX: R25.1 Tremor, unspecified (principal) | CPT/HCPCS: 80053; 84439; 84443 ==

== ENCOUNTER 2025-06-29 11:02 | Emergency (ER) | payer BC, SELFPAY ==
[2025-06-29] VITALS (11 sets, daily range): BP systolic 86–117; BP diastolic 64–87; PULSE 82–98; RESP 15–24; TEMP 35.9; O2SAT 95–100; BMI 33.0
--- NOTE | 2025-06-29 11:06 | CRLHL7_ITS ---
For Patients: As a result of the 21st Century Cures Act, medical imaging exams and procedure reports are released immediately into your electronic medical record. You may view this report before your referring provider. If you have questions, please contact your health care provider. INDICATION: SOB, ELEVATED D DIMER 5 DAYS AGO. TECHNIQUE: CT chest PE was acquired with 100 cc Isovue 370 IV contrast. MIP reformations constructed. COMPARISON: None. FINDINGS: Heart and vasculature: Contrast opacification of the pulmonary arterial tree is adequate. Numerous bilateral pulmonary emboli extending from the distal right and left pulmonary arteries into downstream branches of all lung lobes. Abnormal RV to LV ratio of 1.8. heart size is normal. Thoracic aorta is normal in caliber. Lungs: 0.7 cm solid noncalcified pulmonary nodule in the right middle lobe (5/111). Pleura: No pleural effusion or pneumothorax. Lymph nodes/mediastinum: No mediastinal, hilar, or axillary adenopathy. Chest wall: No masses. Upper abdomen: Small to moderate hiatal hernia. There is mild to moderate gallbladder distension with mild layering hyperdensity in the dependent gallbladder, which may reflect small layering stones, hyperdense sludge or excreted contrast from a prior examination. Mild pericholecystic fat stranding Bones: Unremarkable for age. IMPRESSION: 1. Numerous bilateral pulmonary emboli extending from the distal right and left pulmonary arteries into downstream branches of all lung lobes. Abnormal RV to LV ratio of 1.8 cm suggestive of possible right heart strain. 2. Mild to moderate gallbladder distention with pericholecystic fat stranding. This is nonspecific, but could reflect acute cholecystitis in the appropriate clinical setting. This could be further evaluated with a right upper quadrant ultrasound, at clinical discretion. 3. Right middle lobe 0.7 cm solid noncalcified pulmonary nodule. Per Fleischner criteria, this could be further evaluated with a follow-up CT chest in 6-12 months. These findings were discussed with Dr. Guevara at 12:12 p.m. Please note that all CT scans at this facility use dose modulation, iterative reconstruction, and/or weight-based dosing when appropriate to reduce radiation dose to as low as reasonably achievable. Dictated by Ino Nugent MD @ 06/29/2025 12:13:02 PM (Electronically Signed)
--- NOTE | 2025-06-29 11:12 | ED_ITS ---
HPI - General Adult General Time Seen by Provider: 11:12 Date Seen: 06/29/25 Chief complaint: Shortness of Breath/Dyspnea Stated complaint: Dr. Maguire sent him to Er- CT scan Time Seen by Provider: 06/29/25 11:07 Source: patient, family, RN notes reviewed and other (phone call from Dr. Maguire received.) Mode of arrival: ambulatory Limitations: no limitations History of Present Illness HPI narrative: This 55-year-old male was referred to us by Dr. Maguire for concern of DVT and probable pulmonary embolus. This patient was in clinic with complaints of left leg pain and swelling, shortness of breath. Patient went to the ER in [place] 5 days ago but left AMA, he went in short of breath. His D-dimer was elevated at 6.6 reportedly. His blood pressure in clinic today was 80/50. Patient refused to go back to that ER. His sister drove him here. He does have of chronic alcohol issues. Patient states he has intermittently had shortness of breath over the last month. He is denying any chest pain. He endorses dizziness and lightheadedness but states that is been going on for about 4 years. He also states that he has been having migraine headaches and plantar fasciitis that have been going on for this time frame as well. He has had no recent travel. He has never had a blood clot before, they are not aware of any family history of this. His sister is present. Related Data Previous Rx's ?Medication ?Instructions ?Recorded amlodipine 10 mg tablet 10 mg PO DAILY #90 tabs 11/25 02/15 pantoprazole 40 mg tablet,delayed 40 mg PO QDAY #90 ta bs 12/16/24 release (Protonix) losartan 100 1 tab PO DAILY #90 tabs 12/26 02/15 mg-hydrochlorothiazide 12.5 mg tablet Allergies Allergy/AdvReac Type Severity Reaction Status Date / Time bee venom protein (honey bee) Allergy Severe Anaphylaxis Verified 06/29/25 11:54 Review of Systems Status of ROS: Reports: 6 or more systems reviewed and unremarkable except as noted in History and below PFSH PFSH Medical History BPV (benign positional vertigo) ?H81.10 - Benign paroxysmal vertigo, unspecified ear (ICD-10) ROMÁN (obstructive sleep apnea) ?G47.33 - Obstructive sleep apnea (adult) (pediatric) (ICD-10) Chronic nasal congestion ?R09.81 - Nasal congestion (ICD-10) Chronic back pain ?M54.9 - Dorsalgia, unspecified (ICD-10) ?G89.29 - Other chronic pain (ICD-10) Meralgia paresthetica of left side ?G57.12 - Meralgia paresthetica, left lower limb (ICD-10) Restless leg syndrome ?G25.81 - Restless legs syndrome (ICD-10) Tremor ?R25.1 - Tremor, unspecified (ICD-10) History of multiple concussions ?Z87.820 - Personal history of traumatic brain injury (ICD-10) GERD (gastroesophageal reflux disease) ?K21.9 - Gastro-esophageal reflux disease without esophagitis (ICD-10) Plantar fasciitis, right ?M72.2 - Plantar fascial fibromatosis (ICD-10) Adjustment disorder with depressed mood ?F43.21 - Adjustment disorder with depressed mood (ICD-10) Obesity ?E66.9 - Obesity, unspecified (ICD-10) Hyperlipidemia, mixed ?E78.2 - Mixed hyperlipidemia (ICD-10) Essential hypertension ?I10 - Essential (primary) hypertension (ICD-10) Impingement of right shoulder ?M25.811 - Other specified joint disorders, right shoulder (ICD-10) Recovering alcoholic ?F10.21 - Alcohol dependence, in remission (ICD-10) Surgical History History of foot surgery ?Z98.890 - Other specified postprocedural states (ICD-10) Family History Father Alcohol dependence Brother High blood pressure Diabetes Depression Social History Narrative: 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, 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, 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, 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, 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 What is your current living situation?: declined to answer Problems where you live: no known problems and declined to answer In the past 12 months, utilities in danger of being shut off: declined to answer In past 12 months, lack of transportation kept you from medical appts, meetings, work, or getting things needed for daily living: declined to answer In the past 12 mos, have been you worried that your food would run out before you had money to buy more?: declined to answer In the past 12 mos, the food you bought just didn't last and you didn't have money to buy more?: declined to answer How often does anyone, including family, friends and others, physically hurt you : decline to answer How often does anyone, including family, friends and others, insult or talk down to you: decline to answer How often does anyone, including family, friends and others, threaten you with harm: decline to answer How often does anyone, including family, friends and others, scream or curse at you: decline to answer Health Related Social Needs: unsheltered homelessness (Z59.02) Exam Const: Vital Signs, click to edit/add: Vital Signs - 24 hr 06/29/25 11:08 06/29/25 11:30 06/29/25 11:38 Temperature 96.7 F L Pulse Rate 98 Pulse Rate [Pulse Oximeter] 91 Respiratory Rate 24 15 20 Blood Pressure 97/80 Blood Pressure [Ri ght Upper Arm] 86/64 L Pulse Oximetry 97 95 Oxygen Delivery Me thod Room Air 06/29/25 11:39 06/29/25 12:43 06/29/25 12:46 Temperature Pulse Rate 85 85 Pulse Rate [Pulse Oximeter] Respiratory Rate Blood Pressure 101/87 Blood Pressure [Ri ght Upper Arm] Pulse Oximetry 97 100 Oxygen Delivery Me thod 06/29/25 12:54 06/29/25 13:00 06/29/25 13:01 Temperature Pulse Rate 84 82 82 Pulse Rate [Pulse Oximeter] Respiratory Rate Blood Pressure 117/82 Blood Pressure [Ri ght Upper Arm] Pulse Oximetry 96 95 96 Oxygen Delivery Me thod 06/29/25 13:15 06/29/25 13:17 Temperature Pulse Rate 82 82 Pulse Rate [Pulse Oximeter] Respiratory Rate Blood Pressure 102/68 Blood Pressure [Ri ght Upper Arm] Pulse Oximetry 95 96 Oxygen Delivery Me thod This 55-year-old male is alert, interactive, no apparent distress. He is ambulatory into the ED of his own accord. Skin is pritchard, no rash. Pupils equal round reactive, sclera clear, symmetrical facial function. Speech is normal. He is able to sit up, lungs are clear, good air entry, wheezing or crackles, no tachypnea. CV regular rate and rhythm, no murmur noted. Abdomen with a non incarcerated umbilical hernia, nontender. His abdominal exam reveals no tenderness, no rebound or guarding, no organomegaly noted. I do not appreciate significant left lower extremity edema but there is about trace to 1+ pitting edema along the anterior tibia. He does complain of some calf tenderness when I palpate. He does maybe have some trace anterior pretibial edema on the right as well but calf is nontender. Documenting provider has reviewed patient's vital signs: yes Course Course ED Course: Will get appropriate labs, initiate an IV, give him a L of IV fluids. He will be on cardiac monitoring and pulse oximetry looking for hypoxia arrhythmia. Will get a baseline EKG to see if there is any evidence of any cardiac strain or ischemic change. I have ordered a chest CT PE protocol and will be getting a venous ultrasound of his left lower extremity. Based on his history provided by a Dr. Maguire, do have concerns that he could have a significant pulmonary embolus and on and left DVT. Will be getting troponin in appropriate labs. Reevaluation(s) Time of Reevaluation #1: 12:16 Reevaluation #1: Report has been called that patient has bilateral PEs in all lobes and evidence of right heart strain. There is stranding around his gallbladder. Unfortunately his creatinine has come back at 2.8, will give him some IV fluids, creatinine was 1.5 on April 20 of this year. I have asked staff to page out the senior audit manager at [facility]. His troponin is 0.08 but creatinine is elevated. He will need heparin which I have ordered for PE protocol. I will need to talk to him in a bit as they do have other situations to attend to. Time of Reevaluation #2: 12:33 Reevaluation #2: Have reviewed with patient he has significant pulmonary emboli. We still are waiting ultrasound of his lower extremity but will not delay transfer. I have spoken with Dr. Grier and related this to patient and his sister. Patient is not aware of any falls where he could have hit his head but admits to blackouts. These have happened on more than 1 occasion and recently. We will thus proceed with heparin. I just do not have a sense of safety with the tPA with his alcoholism and reports of blackouts. Will also give a dose of Ativan, he is shaking, I do not think that this is probable withdrawal, patient states these of the tremors that he has all the time. He states this is another thing that they have not figured out. We reviewed that he would need to go to [facility] ICU. Did also review that he has elevated creatinine, unclear why. Consultations Consultation #1: Did speak with senior audit manager at [facility] Dr. Grier. Would give this patient half dose tPA if clinically appropriate. Did discuss concerns for alcoholism. He states if this patient has had any falls even with a negative head CT, would be concerned about a late head bleed. We will not give in this scenario. I will be talking to the patient. I will consent patient and see if he has any contraindications. Otherwise patient will transfer to the ICU. If we do not give the lytic, patient will be given heparin per PE protocol. Time: 12:22 Vital Signs Vital signs: Initial Vital Signs Temperature 96.7 F L 06/29/25 11:08 Temperature Source Temporal Artery Scan 06/29/25 11:08 Pulse Rate 91 06/29/25 11:08 Respiratory Rate 24 06/29/25 11:08 Blood Pressure 86/64 L 06/29/25 11:08 Blood Pressure Mean 71 06/29/25 11:08 Blood Pressure Position Sitting 06/29/25 11:08 Pulse Oximetry 97 06/29/25 11:08 Oxygen Delivery Method Room Air 06/29/25 11:08 Vital Signs Temperature 96.7 F L 06/29/25 11:08 Pulse Rate 91 06/29/25 11:08 Respiratory Rate 24 06/29/25 11:08 Blood Pressure 86/64 L 06/29/25 11:08 Pulse Oximetry 97 06/29/25 11:08 Oxygen Delivery Method Room Air 06/29/25 11:08 Temperature 96.7 F L 06/29/25 11:08 Pulse Rate 82 06/29/25 13:17 Respiratory Rate 20 06/29/25 11:38 Blood Pressure 102/68 06/29/25 13:17 Pulse Oximetry 96 06/29/25 13:17 Oxygen Delivery Method Room Air 06/29/25 11:08 Medications Administered Medications: Discontinued Medications Generic Name Dose Route Start Last Admin Trade Name Freq PRN Reason Stop Dose Admin Heparin Sodium (Porcine) 8,800 unit 06/29/25 12:14 06/29/25 12:38 Heparin 5,000 Unit/0.5 Ml Inj 80 unit/kg (8800 unit) 06/29/25 12:15 8,800 unit IVP Administration ONCE ONE Sodium Chloride 1,000 mls @ 500 mls/hr 06/29/25 11:11 06/29/25 12:12 0.9 % Sodium Chloride 1000 Ml IV 06/29/25 13:10 500 mls/hr .Q2H JOVANY Administration Heparin Sodium/Dextrose 25,000 unit in 500 mls @ 0 mls/hr 06/29/25 12:15 06/29/25 12:40 Heparin IV 1,500 unit/hr .Q0M JOVANY 30 mls/hr Protocol Administration Per Protocol Lorazepam 1 mg 06/29/25 12:34 06/29/25 12:45 Lorazepam 2 Mg/Ml Inj IVP 06/29/25 12:35 1 mg ONCE ONE Administration Medical Decision Making Lab Data Lab results reviewed: Yes I reviewed the patient's lab results Labs: Lab Results 06/29/25 06/29/25 Range/Units 11:07 11:20 WBC 8.68 (4.50-11.00) K/uL RBC 4.20 L (4.30-5.90) m/uL Hgb 14.4 (13.5-17.5) gm/dL Hct 42.2 (37.0-53.0) % MCV 101 H (80-100) fL MCH 34 (26-34) pg MCHC 34 (32-36) gm/dL RDW Coeff of Aristeo 15.0 (11.5-15.5) % Plt Count 231 (140-440) K/uL Neut % (Auto) 55.2 (42.0-72.0) % Lymph % (Auto) 27.3 (20-44) % [place] % (Auto) 13.1 H (0.0-11.0) % Eos % (Auto) 2.8 (0.0-7.0) % Baso % (Auto) 1.0 (0.0-3.0) % Neut # (Auto) 4.79 (1.7-7.0) K/uL Lymph # (Auto) 2.37 (0.90-2.90) K/uL [place] # (Auto) 1.10 H (0.00-0.90) K/UL Eos # (Auto) 0.24 (0.00-0.50) K/uL Baso # (Auto) 0.09 (0.00-0.30) K/uL Abs Immat Gran (auto) 0.05 (0.00-0.30) K/uL Imm/Tot Granulo (auto) 0.6 % INR 0.99 (0.91-1.10) APTT 27 (23-33) Seconds D-Dimer Quant (PE/DVT) 3.11 H (0.00-0.50) ug/ml Sodium 132 L (135-149) mmol/L Potassium 2.7 L* (3.6-5.1) mmol/L Chloride 93 L (96-114) mmol/L Carbon Dioxide 28 (20-32) mmol/L Anion Gap 11 (7-15) mEq/L BUN 22 (7-30) mg/dL Creatinine 2.8 H (0.5-1.5) mg/dL Estimated Creat Clear 32.33 Estimated GFR 26 ml/min Glucose 112 (60-115) mg/dL Calcium 8.6 (8.4-10.6) mg/dL Total Bilirubin 3.2 H (0.1-1.5) mg/dL AST 66 H (12-35) U/L ALT 33 (4-50) U/L Alkaline Phosphatase 84 (40-150) U/L Troponin I 0.08 H* (0.01-0.04) ng/mL Total Protein 6.9 (6.0-8.3) g/dL Albumin 3.7 (3.3-5.0) g/dL Ethyl Alcohol 0.20 H (0.01-0.03) % Lab Acknowledgement New Spec Needed A Imaging Data CT scan - chest: Attestation: I have reviewed the pertinent imaging results. Radiologist's impression: Patient: GABY SALMERON Facility:?[facility] Patient ID:?[id number] Site Patient ID:?[id number]. Site :?[id number] Study:?CT-Chest Angio PE Protocol WITH 100 CC'S ISOVUE 370-06/29/2025 11:55:47 AM Ordering Physician:Gabe Arita Final Report: INDICATION: SOB, ELEVATED D DIMER 5 DAYS AGO. TECHNIQUE: CT chest PE was acquired with 100 cc Isovue 370 IV contrast. MIP reformations constructed. COMPARISON: None. FINDINGS: Heart and vasculature: Contrast opacification of the pulmonary arterial tree is adequate. Numerous bilateral pulmonary emboli extending from the distal right and left pulmonary arteries into downstream branches of all lung lobes. Abnormal RV to LV ratio of 1.8. heart size is normal. Thoracic aorta is normal in caliber . Lungs: 0.7 cm solid noncalcified pulmonary nodule in the right middle lobe (5/111). Pleura: No pleural effusion or pneumothorax. Lymph nodes/mediastinum: No mediastinal, hilar, or axillary adenopathy. Chest wall: No masses. Upper abdomen: Small to moderate hiatal hernia. There is mild to moderate gallbladder distension with mild layering hyperdensity in the dependent gallbladder, which may reflect small layering stones, hyperdense sludge or excreted contrast from a prior examination. Mild pericholecystic fat stranding Bones: Unremarkable for age. IMPRESSION: 1. Numerous bilateral pulmonary emboli extending from the distal right and left pulmonary arteries into downstream branches of all lung lobes. Abnormal RV to LV ratio of 1.8 cm suggestive of possible right heart strain. 2. Mild to moderate gallbladder distention with pericholecystic fat stranding. This is nonspecific, but could reflect acute cholecystitis in the appropriate clinical setting. This could be further evaluated with a right upper quadrant ultrasound, at clinical discretion. 3. Right middle lobe 0.7 cm solid noncalcified pulmonary nodule. Per Fleischner criteria, this could be further evaluated with a follow-up CT chest in 6-12 months. These findings were discussed with Dr. Guevara at 12:12 p.m. Please note that all CT scans at this facility use dose modulation, iterative reconstruction, and/or weight-based dosing when appropriate to reduce radiation dose to as low as reasonably achievable. Dictated by Ino Nugent MD @ 06/29/2025 12:13:02 PM (Electronic Signature) ECG Data Attestation: I personally reviewed and interpreted this ECG as follows: (Normal sinus rhythm, 80 beats per minute. Nonspecific T-wave change without any acute ST elevation or depression. QT corrected 498 milliseconds.) Prior ECG tracings: not available for review Discharge Plan Discharge Clinical Impression: Bilateral pulmonary embolism, Acute hypotension, Acute hypokalemia, Acute kidney injury Patient Disposition: Xfer Acute Care Hospital Discharge Location: [facility]
[2025-06-29 11:27] LABS: Lab Add On Test New Spec Needed
[2025-06-29 11:39] LABS: Hematocrit 42.2 % (37.0-53.0); Hemoglobin* 14.4 gm/dL (13.5-17.5); Immature Granulocytes Abs Auto 0.05 K/uL (0.00-0.30); Immature Granulocytes Pct Auto 0.6 %; Lymphocytes Absolute Auto 2.37 K/uL (0.90-2.90); Mean Corpuscular HGB Conc 34 gm/dL (32-36); Mean Corpuscular Hemoglobin 34 pg (26-34); Mean Corpuscular Volume 101 fL (80-100); RDW Coefficient of Variation % 15.0 % (11.5-15.5); Red Blood Count 4.20 m/uL (4.30-5.90); White Blood Count* 8.68 K/uL (4.50-11.00)
[2025-06-29 11:47] LABS: Albumin* 3.7 g/dL (3.3-5.0); Chloride* 93 mmol/L (96-114)
[2025-06-29 11:48] LABS: Sodium* 132 mmol/L (135-149)
[2025-06-29 11:50] LABS: Alanine Aminotransferase* 33 U/L (4-50); Alkaline Phosphatase* 84 U/L (40-150); Anion Gap 11 mEq/L (7-15); Aspartate Amino Transferase* 66 U/L (12-35); Bilirubin Total* 3.2 mg/dL (0.1-1.5); Blood Urea Nitrogen* 22 mg/dL (7-30); Carbon Dioxide* 28 mmol/L (20-32); Creatinine* 2.8 mg/dL (0.5-1.5); Est. Creatinine Clearance* 32.33; Estimated Glomerular Filt Rate 26 ml/min; Total Protein* 6.9 g/dL (6.0-8.3)
[2025-06-29 11:51] LABS: Calcium* 8.6 mg/dL (8.4-10.6); Ethanol* 0.20 % (0.01-0.03); Glucose* 112 mg/dL (60-115); INR 0.99 (0.91-1.10); Prothrombin Time 13.9 Seconds
[2025-06-29 11:54] LABS: D Dimer Quantitative* 3.11 ug/ml (0.00-0.50)
[2025-06-29 12:00] LABS: Potassium* 2.7 mmol/L (3.6-5.1)
[2025-06-29 12:01] LABS: Slide Review Reflex No
[2025-06-29] MEDS: HEPARIN 5,000 UNIT/0.5 ML INJ 8800 UNIT IVP (12:38)
[2025-06-29] MEDS: HEPARIN 25,000 UNIT/500 ML BAG 30 UNIT IV (12:40)
== END 2025-06-29 13:51 | disposition short-term general hospital (02) ==
PROVIDERS: Emergency Provider Family Medicine; PCP Family Medicine
DX: I26.99 Other pulmonary embolism without acute cor pulmonale (principal); I95.9 Hypotension, unspecified; E87.6 Hypokalemia; N17.9 Acute kidney failure, unspecified
CPT/HCPCS: 36415; 71275; 80053; 82077; 84484; 85025; 85379; 85610; 85730; 96374; 96375; 99285; J1644; J2060; J7030; Q9967

== ENCOUNTER 2025-06-29 13:14 | Outpatient (CLI) | payer BC, SELFPAY | END 2025-06-29 13:15 | disposition home or self-care (01) | PROVIDERS: PCP Family Medicine; Visit Provider Family Medicine | DX: I26.99 Other pulmonary embolism without acute cor pulmonale (principal); I95.9 Hypotension, unspecified; E87.6 Hypokalemia; N17.9 Acute kidney failure, unspecified | CPT/HCPCS: A0425; A0427 ==

== ENCOUNTER 2025-09-13 08:54 | Outpatient (CLI) | payer BC, SELFPAY | END 2025-09-13 08:55 | disposition home or self-care (01) | LOC: FBOREF 08:56 | PROVIDERS: PCP Family Medicine; Visit Provider Family Medicine | DX: E78.2 Mixed hyperlipidemia (principal); I10 Essential (primary) hypertension; E03.9 Hypothyroidism, unspecified; E66.9 Obesity, unspecified; Z68.33 Body mass index [BMI] 33.0-33.9, adult | CPT/HCPCS: 80048; 80061; 84443 ==